=== PATIENT | male | born 1940 | race Caucasian/White ===

== ENCOUNTER → 2016-12-12 | Outpatient (CLI) | payer MEDICARE ==
--- NOTE | 2016-12-12 12:26 | CT ---
EXAMINATION TYPE: CT ChestAbdPelvis wo con DATE OF EXAM: 12/12/2016 9:27 AM COMPARISON: PET/CT August 27, 2016. CT abdomen pelvis September 19, 2016 HISTORY: Follow up renal cancer. No complaints at time of service CT DLP: 1306 mGycm. Automated Exposure Control for Dose Reduction was Utilized. TECHNIQUE: CT scan of the thorax, abdomen and pelvis is performed with oral but without IV contrast. FINDINGS: LUNGS: There is background of mild to moderate emphysematous change. There is redemonstration of scat tered pulmonary nodules or metastatic lesions. For reference posterior right upper lobe nodule measur es 9 mm on long axis current study image 13 versus 12 mm on recent PET/CT. Subpleural nodule lateral left upper lobe measures 8 mm on long axis prior study image 17 versus 10 mm on prior study. Largest nodule left mid lung laterally on image 111 PET/CT measuring roughly 1.8 cm on long axis is not clear ly identified on today's study. Some linear scarring is present at this level. Nodule just inferior m edial to this measures 1.3 cm on long axis current versus 1.7 cm on prior PET/CT image 118 study imag e 35. No new or enlarging nodules are evident. No pleural effusion or pneumothorax is seen. MEDIASTINUM: Previously visualized enlarged thoracic lymph nodes are improved, for reference anterior prevascular lymph node measures 1.7 x 1.2 cm on PET/CT image 100 and now measures 8 x 6 mm on curren t study image 24. No pericardial effusion is seen. There is redemonstration of cardiomegaly with everardo trial and left ventricular dilatation. Coronary artery calcification and/or stent is redemonstrated. There is 4 vessel origin from aortic arch which is normal variant. OTHER: No additional significant abnormality is seen. LIVER/GB: No significant abnormality is appreciated. PANCREAS: No significant abnormality is seen. SPLEEN: No significant abnormality is seen. ADRENALS: No significant abnormality is seen. KIDNEYS: A vague partially calcified 3.2 cm lesion medially upper pole level right kidney is redemons trated consistent with known neoplasm. More ill-defined mass or area just inferior and lateral to thi s is less well-seen on current study. Etiology uncertain. Multifocal neoplasm involvement suspected o n prior CT. There are now 2-3 calculi scattered throughout left kidney measuring 3 mm or smaller in size. BOWEL: Diverticula are seen in redundant sigmoid colon. No acute diverticulitis is identified. GENITAL ORGANS: Heterogeneous enlarged prostate gland with calcifications is redemonstrated. LYMPH NODES: No greater than 1cm abdominal or pelvic lymph nodes are appreciated. Scattered prominent but subcentimeter retroperitoneal lymph nodes remain present. OSSEOUS STRUCTURES: There is transitional-type vertebra at lumbosacral junction. There is multilevel spurring in the mid to lower thoracic spine. OTHER: No significant additional abnormality is seen. IMPRESSION: Overall improvement in pulmonary metastatic disease and thoracic adenopathy. No new or en larging masses or adenopathy is clearly evident.
== END ==
LOC: RADCTMAIN 09:04
PROVIDERS: ATTEND Internal Medicine Hematology & Oncology
DX: Z03.89 Encounter for observation for other suspected diseases and conditions ruled out (principal); C78.02 Secondary malignant neoplasm of left lung; C78.01 Secondary malignant neoplasm of right lung; R59.0 Localized enlarged lymph nodes; C64.1 Malignant neoplasm of right kidney, except renal pelvis
CPT/HCPCS: 71250; 74176

== ENCOUNTER → 2017-04-13 | Outpatient (CLI) | payer MEDICARE ==
[2017-04-13 12:30] LABS: Blood Urea Nitrogen 16 mg/dL (9-20); Non-African American GFR(MDRD) >60 (>60 ml/min/1.73 sqM)
--- NOTE | 2017-04-13 14:02 | CT ---
EXAMINATION TYPE: CT ChestAbdPelvis w con DATE OF EXAM: 04/13/2017 COMPARISON: Previous study dated 12/12/2016. HISTORY: Patient has no complaints at time of study. Follow up study for known renal CA. CT DLP: 2005 mGycm Automated exposure control for dose reduction was used. TECHNIQUE: Helical acquisition through the abdomen and pelvis was obtained without oral contrast but following the intravenous administration of 100 mL of Visipaque 320. The data was formatted in the a xial, coronal and sagittal projections. FINDINGS: There are emphysematous changes throughout the lungs. 12 mm lesion in the posterior segment of the right upper lobe now measures 11 mm. 10 11 mm nodule in the right middle lobe now measures 10 mm. Other pulmonary nodules are shown similar decreases in size from the previous study. No definite new nodules are seen. There are no enlarged axillary, mediastinal or hilar lymph nodes. Shotty lymphadenopathy persists. There is no pleural or pericardial fluid. The heart is mildly enlarged. There is moderate coronary ar hetal calcification as well as other vascular calcifications. Within the abdomen, the liver is normal in size. The spleen and gallbladder are normal. There is a sm all splenule lateral to the spleen. Both adrenal glands are normal. There is a heterogeneously enhancing 3.6 x 3.6 x 3.2 cm mass arising from the upper pole of the right kidney. The left kidney has a normal appearance. The pancreas is unremarkable. There is no significant retroperitoneal, iliac or inguinal adenopathy. The prostate is enlarged and partially calcified. There is bladder wall thickening likely due to clerk carrier stew bladder outlet obstruction. There is extensive diverticular change throughout the sigmoid colon with scattered diverticula elsewh ere throughout the left side of the colon but without evidence of diverticulitis. The appendix is not visualized. There are mildly thickened loops of small bowel. I could not exclude some degree of enteritis. No free fluid and no free air is seen. There is hypertrophic spondylosis in the upper dorsal spine spine. There is degenerative disc disease at L4-5. No bony destructive lesion is seen. IMPRESSION: 1. THE PATIENT'S KNOWN RIGHT-SIDED RENAL CELL CARCINOMA APPEARS LARGER ON TODAY'S EXAMINATION. THIS M AY BE DUE TO IMPROVED DEFINITION WITH CONTRAST. 2. IMPROVEMENT IN THE PATIENT'S BILATERAL PULMONARY NODULES AND MEDIASTINAL ADENOPATHY. 3. EMPHYSEMATOUS CHANGES THROUGHOUT THE LUNGS. 4. CARDIOMEGALY. 5. PROSTATIC ENLARGEMENT AND BLADDER WALL THICKENING, LIKELY SECONDARY TO CHRONIC BLADDER OUTLET OBST RUCTION. 6. DEGENERATIVE CHANGES WITHIN THE SPINE. 7. SEVERAL THICKENED LOOPS OF SMALL BOWEL MAY REPRESENT ENTERITIS. PLEASE CORRELATE CLINICALLY.
== END | disposition home or self-care (01) ==
LOC: RADCTMAIN 11:18
PROVIDERS: ATTEND Internal Medicine Hematology & Oncology
DX: C64.1 Malignant neoplasm of right kidney, except renal pelvis (principal); J43.9 Emphysema, unspecified; R91.8 Other nonspecific abnormal finding of lung field; I51.7 Cardiomegaly; R59.0 Localized enlarged lymph nodes; N40.0 Benign prostatic hyperplasia without lower urinary tract symptoms
CPT/HCPCS: 82565; 84520; 71260; 74177; 36415; Q9967

== ENCOUNTER → 2017-07-24 | Outpatient (CLI) | payer MEDICARE ==
[2017-07-24 09:55] LABS: Blood Urea Nitrogen 20 mg/dL (9-20); Non-African American GFR(MDRD) >60 (>60 ml/min/1.73 sqM)
--- NOTE | 2017-07-24 11:35 | CT ---
EXAMINATION TYPE: CT ChestAbdPelvis w con DATE OF EXAM: 07/24/2017 COMPARISON: 04/13/2017 and 12/12/2016 HISTORY: Renal cancer CT DLP: 1204.40 mGycm. Automated Exposure Control for Dose Reduction was Utilized. CONTRAST: CT scan of the thorax, abdomen and pelvis is performed with IV Contrast, patient injected with 100 ml mL of Omnipaque 300. FINDINGS: LUNGS: There is stability of the right apical solid pulmonary nodule measuring approximately 1.1 cm s een on series 10 image 12. Spiculated anterior right upper lobe nodule measures approximately 1.0 cm, unchanged from the prior. Superior segment left upper lobe pulmonary nodule measures 7 mm, similar t o the prior on series 10 image 21. 1.0 cm left lower lobe nodule on series 10 image 31 is seen. Other scattered subcentimeter pulmonary nodules appear unchanged from the prior exam. No new nodules are a ppreciated. Mild centrilobular emphysematous changes are redemonstrated. There is no pleural effusion or pneumothorax seen. The tracheobronchial tree is patent. MEDIASTINUM: Mildly enlarged subcarinal lymph node measures 1.2 cm in short axis in precarinal lymph node measures 0.9 cm in short axis, nonenlarged. Findings are unchanged from the prior exam. No peric ardial effusion is seen. Incidental note is made of normal variant origin of the left vertebral michael ry directly from the aortic arch. Mild calcific atheromatous changes are present of the aortic arch a nd moderate of the coronary arteries. Heart is not enlarged. LIVER/GB: No intrahepatic biliary ductal dilatation. Liver and gallbladder are of normal morphology. Liver is diffusely hypoattenuated and of decreased enhancement in comparison to that of the splenic p arenchyma most commonly related to hepatic steatosis. PANCREAS: No significant abnormality is seen. No ductal dilatation. SPLEEN: No significant abnormality is seen. Small splenule is again seen. ADRENALS: Adrenal glands maintain their normal adreniform shape without discrete nodule or enlargemen t.. KIDNEYS: The heterogenous mass with mural nodules and internal complexity representing the known righ t renal cell carcinoma within the right upper pole measures approximately 3.7 x 3.7 x 3.2 cm, minimal ly enlarged from the prior examination of 04/13/2017 as it measured 3.6 x 3.6 x 3.2 cm. On series 16 im age 61 this is located approximately 6 mm from the right superior pole medial calyx although does jake ear to have mass effect upon additional superior calyx on series 13 image 63. No nodules are seen wit hin Gerarda's fascia. There is no thickening enteritis fascia. Mild nonspecific perinephric fat stran ding is seen. Capsular retraction and cortical scar present of the posterior lateral right kidney mid pole. Although the renal vein is diminutive there does not appear to be thrombus within the renal vei n. Overall the inferior vena cava is flattened and diminutive indicating hypovolemia. BOWEL: Multiple sigmoid diverticula are present without pericolonic fat stranding. Bowel is of normal caliber, nonenlarged. GENITAL ORGANS: Prostate gland is heterogenous and enlarged measuring 5.4 cm in transverse dimension. LYMPH NODES: No greater than 1cm abdominal or pelvic lymph nodes are appreciated. OSSEOUS STRUCTURES: No suspicious abnormality is present. Degenerative changes of the rectal lumbar l umbosacral spine are again seen. OTHER: No significant additional abnormality is seen. IMPRESSION: 1. Minimal increase in size of the known primary right renal cell carcinoma with overall stable likel y metastatic pulmonary nodules and thoracic adenopathy in comparison the prior exam of 04/13/2017. 2. No evidence of visceral metastasis within the abdomen or pelvis. No new suspicious osseous lesions .
== END | disposition home or self-care (01) ==
LOC: RADCTMAIN 09:22
PROVIDERS: ATTEND Internal Medicine Hematology & Oncology
DX: C64.1 Malignant neoplasm of right kidney, except renal pelvis (principal)
CPT/HCPCS: 82565; 84520; 71260; 74177; 36415; Q9967

== ENCOUNTER → 2017-09-06 | Outpatient (CLI) | payer MEDICARE ==
[2017-09-06 07:42] LABS: ALT 40 U/L (21-72); AST 29 U/L (17-59); Cholesterol 199 mg/dL (<200); HDL Cholesterol 68 mg/dL (40-60)
== END | disposition home or self-care (01) ==
LOC: LABWHC1 06:38
PROVIDERS: ATTEND Internal Medicine Cardiovascular Disease
DX: E78.2 Mixed hyperlipidemia (principal); E11.610 Type 2 diabetes mellitus with diabetic neuropathic arthropathy; I10 Essential (primary) hypertension
CPT/HCPCS: 36415; 80061; 83036; 84450; 84460

== ENCOUNTER → 2017-10-16 | Outpatient (CLI) | payer MEDICARE ==
[2017-10-16 13:03] LABS: Blood Urea Nitrogen 20 mg/dL (9-20)
--- NOTE | 2017-10-16 14:26 | CT ---
EXAMINATION TYPE: CT ChestAbdPelvis w con DATE OF EXAM: 10/16/2017 COMPARISON: 07/24/2017 HISTORY: Renal cancer CT DLP: 1747 mGycm Automated exposure control for dose reduction was used. CONTRAST: 100 cc Omnipaque 300 FINDINGS: LUNGS: There is a stable 1.1 cm right apical pulmonary nodule 2 mm left upper lobe pleural-based nodule stable Along the medial aspect of the left upper lobe posteriorly there is an additional 2 to 3 mm nodule sl ightly increased in size from previous exam 9 mm irregular density anterior segment right upper lobe stable 2 mm lateral posterior left upper lobe nodule stable Subpleural 7 mm nodule superior segment left lower lobe stable 2 mm nodule superior segment right lower lobe stable 2 mm nodule left upper lobe laterally image 30 stable 9 mm nodule lower lobe stable Additional tiny satellite nodules measuring 2 mm retrospectively stable 2 mm nodule anterior segment right upper lobe stable Right upper lobe 4 mm the 5 mm nodule slightly increased in size To millimeter nodule left lower lobe are stable. MEDIASTINUM: Stable 1.2 cm subcarinal lymph node. Stable 0.9 cm in short axis precarinal lymph node. Incidental note made of normal variant origin of the left vertebral artery directly from the aortic a rch. Atherosclerotic change of aorta and coronary arteries noted. OTHER: No additional significant abnormality is seen. LIVER/GB: No significant abnormality is appreciated. PANCREAS: No significant abnormality is seen. SPLEEN: No significant abnormality is seen. ADRENALS: No significant abnormality is seen. KIDNEYS: Right renal mass measuring 2.9 x 2.5 cm with calcification is stable given differences in me asurement technique. No additional renal lesions. Cortical loss on the right appears chronic.. BOWEL: Diverticulosis of the colon REPRODUCTIVE ORGANS: Prostate enlarged LYMPH NODES: No greater than 1 cm abdominal or pelvic lymph nodes are appreciated. OSSEOUS STRUCTURES: Hypertrophic and degenerative change of the spine. OTHER: Prostate gland is enlarged IMPRESSION: 1. Given differences in technique right renal mass appears stable. 2. There are numerous bilateral pulmonary nodules one or 2 of which may have demonstrated a 1 mm incr ease in size from the prior exam as measured above. 3. Stable subcarinal lymphadenopathy.
== END | disposition home or self-care (01) ==
LOC: RADCTMAIN 12:15
PROVIDERS: ATTEND Internal Medicine Hematology & Oncology
DX: Z03.89 Encounter for observation for other suspected diseases and conditions ruled out (principal); C64.1 Malignant neoplasm of right kidney, except renal pelvis; R91.8 Other nonspecific abnormal finding of lung field; R59.0 Localized enlarged lymph nodes
CPT/HCPCS: 82565; 84520; 71260; 74177; 36415; Q9967 ×2

== ENCOUNTER → 2018-01-24 | Outpatient (CLI) | payer MEDICARE ==
[2018-01-24 07:51] LABS: Blood Urea Nitrogen 16 mg/dL (9-20)
--- NOTE | 2018-01-24 10:40 | CT ---
EXAMINATION TYPE: CT ChestAbdPelvis w con DATE OF EXAM: 01/24/2018 COMPARISON: 10/16/2017 and 07/24/2017 HISTORY: 77-year-old male Follow up to renal CA TECHNIQUE: Contiguous axial scanning of the chest, abdomen, and pelvis performed with IV Contrast, pa tient injected with 100 mL of Isovue 300. Delayed images through the kidneys were obtained. Coronal/s agittal reconstructions performed. CT DLP: 1254 mGycm Automated exposure control for dose reduction was used. FINDINGS: Chest: Heart upper limits of normal in size without pericardial effusion. Coronary vessel calcifications are present and are remarkable for coronary artery disease. Aortic valvular calcifications are present. Mild ectasia ascending aorta at 3.6 cm. Mild atherosclerotic arch calcifications. Variant direct take off of the left vertebral artery directly from the aortic arch. 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 Precarinal lymph node is stable to minimally larger at 1.1 cm versus 1 cm 10/16/2017 and 9 mm on 2016. Subcarinal lymph node measures 1.7 cm versus 1.6 cm on 10/16/2017 and 1.2 cm on 07/24/2017. A nonenlarg ed 9 mm left hilar lymph node is unchanged. Evaluation of the lungs shows COPD with mild centrilobular emphysema. Redemonstrated numerous bilater al pulmonary nodules measuring up to 1 cm. The majority of these are largely stable, couple maybe a m illimeter increased in size. No consolidation or pleural effusion. Stable stranding curvilinear atelectasis or scarring at the lef t mid lung. ABDOMEN: No focal liver lesion seen. No biliary ductal dilatation. Portal venous system is patent. Gallbladder, adrenal glands, left kidney, spleen with peripheral splenule, and pancreas show no gross abnormal body. Nonobstructive 4 mm calculus lower pole left kidney and 4 mm in the upper pole left kidney. Partially cystic mass medial upper pole left kidney redemonstrated. This is relatively unchanged martha uring approximately 3.5 cm. Moderate stool throughout the colon. Mild sigmoid diverticulosis. No dilated small bowel, free fluid, or free air. Moderate atherosclerotic calcifications throughout the abdominal aorta without aneurysm. Pelvis: Bladder is urine distended. Prostate gland is enlarged at 5.6 cm wide. Multiple pelvic phleboliths. N o abnormal fluid collection in the pelvis or pelvic lymphadenopathy seen. Bones: Mild degenerative changes of the hips. Degenerative changes at the SI joints and within the mid to lo wer lumbar spine. Endplate spondylosis mid to lower thoracic spine. IMPRESSION: 1. THE PATIENT'S PARTIALLY CYSTIC RIGHT UPPER POLE RCC IS RELATIVELY UNCHANGED AT APPROXIMATELY 3.5 C M. 2. A FEW MILDLY ENLARGED MEDIASTINAL LYMPH NODES MEASURING UP TO 1.7 CM ARE MINIMALLY LARGER BY ONLY A MILLIMETER COMPARED TO 10/16/2017. 3. BILATERAL PULMONARY NODULES MEASURING UP TO 1 CM ARE RELATIVELY UNCHANGED, A FEW MAY BE A MILLIMET ER LARGER. 4. COPD WITH MILD EMPHYSEMA AND LEFT-SIDED NEPHROLITHIASIS. MILD SIGMOID DIVERTICULOSIS AND PROSTATOM EGALY (5.6 CM WIDE).
== END | disposition home or self-care (01) ==
LOC: RADCTMAIN 07:13
PROVIDERS: ATTEND Internal Medicine Hematology & Oncology
DX: C64.1 Malignant neoplasm of right kidney, except renal pelvis (principal); N20.0 Calculus of kidney; N28.1 Cyst of kidney, acquired; J43.9 Emphysema, unspecified; K57.30 Diverticulosis of large intestine without perforation or abscess without bleeding; N40.0 Benign prostatic hyperplasia without lower urinary tract symptoms; R91.8 Other nonspecific abnormal finding of lung field
CPT/HCPCS: 82565; 84520; 71260; 74177; 36415; Q9967

== ENCOUNTER → 2018-04-13 | Outpatient (CLI) | payer MEDICARE ==
[2018-04-13 10:01] LABS: Blood Urea Nitrogen 20 mg/dL (9-20)
--- NOTE | 2018-04-13 12:13 | CT ---
EXAMINATION TYPE: CT ChestAbdPelvis w con DATE OF EXAM: 04/13/2018 COMPARISON: 01/24/2018 and 10/16/2017 HISTORY: 77-year-old male Renal cell Cancer TECHNIQUE: Contiguous axial scanning of the chest, abdomen, and pelvis performed with IV Contrast, pa tient injected with 100 ml mL of Isovue 300. Delayed images through the kidneys were obtained. Balderas l/sagittal reconstructions performed. CT DLP: 1165.80 mGycm Automated exposure control for dose reduction was used. FINDINGS: Chest: Heart is upper limits of normal in size without pericardial effusion. Mitral annular and aortic valvu lar calcifications are present as well as coronary artery calcifications. Ascending aorta ectatic at 3.5 cm with mild atherosclerotic arch calcifications. Variant direct takeo ff of the left vertebral artery directly from the aortic arch. Apparent intraluminal defect involving a right middle lobe branch localizes to the bronchus on balderas l and sagittal series, referred axial image 32) pulmonary arterial system. There is progressive mediastinal lymphadenopathy measuring 1.5 cm precarinal, 1.4 cm left tracheobron chial angle, 1.1 cm AP window, 1.4 cm right hilar, 2.7 cm subcarinal, and 9 mm superior left mediasti num, previously measuring up to 1.1 cm. Mild centrilobular emphysema. There is no more confluent nodularity at the left midlung and left lowe r lobe, for example, reference axial image 30. Multiple pulmonary nodules show slight interval increase in size, for example, in the inferior lingul a measuring 9 mm versus 6 no evidence, previously, posterior right apex measuring 1.2 cm versus 8 mm, previously, anterior right midlung 1.0 cm versus 7 mm, previously just as an example. Some postsurgical changes at the periphery of the left mid and lower lung with increasing nodularity about the site. New small left pleural effusion. ABDOMEN: Small hiatal hernia. No focal liver lesion or biliary ductal dilatation. Portal venous system is patent. Gallbladder, adrenal glands, spleen with lateral splenule, and pancreas show no gross abnormality. Cortical defects within the upper pole of the right kidney unchanged. Medial right upper pole solid h eterogeneously enhancing neoplasm measures 3.8 cm versus 3.5 cm on 01/24/2018. No dilated small bowel, free fluid, or free air. No mesenteric or retroperitoneal lymphadenopathy see n. 5 mm nonobstructive left upper pole renal calculus. Oral contrast progressed to the rectum. Mild sigmoid diverticulosis. No pericolonic inflammatory curtis ge or significant stool burden. Pelvis: Bladder distended. Prostate gland prominent measuring 5.8 cm wide. Multiple pelvic phleboliths. No ab normal fluid collection in the pelvis. Bones: New 1.3 cm lytic lesion within the left T5 vertebral body. Mild degenerative changes at the hips. Deg enerative changes at the SI joints, and facet arthropathy with degenerative disc disease in the lumba r spine with grade 1 anterolisthesis at L4-L5. IMPRESSION: 1. DISEASE PROGRESSION WITH ENLARGING MEDIASTINAL LYMPHADENOPATHY MEASURING UP TO 2.7 CM VERSUS 1.7 C M, PREVIOUSLY. 2. 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 3. ENLARGING NUMEROUS BILATERAL PULMONARY NODULES MEASURING UP TO 1.2 CM. THERE IS POSTSURGICAL RAMIREZ E ALONG THE LEFT MID TO LOWER LUNG WITH INCREASING CONFLUENT NODULARITY HERE WELL. NEW SMALL LEFT PLEURAL EFFUSION. 4. THE PATIENT'S RIGHT UPPER POLE RCC IS MINIMALLY LARGER AT 3.8 CM VERSUS 3.5 CM, PREVIOUSLY. 5. COPD WITH MILD EMPHYSEMA, 5 MM NONOBSTRUCTIVE LEFT RENAL CALCULUS, AND MILD SIGMOID DIVERTICULOSIS .
== END | disposition home or self-care (01) ==
LOC: RADCTMAIN 09:31
PROVIDERS: ATTEND Internal Medicine Hematology & Oncology
DX: C64.1 Malignant neoplasm of right kidney, except renal pelvis (principal); C79.51 Secondary malignant neoplasm of bone; J90 Pleural effusion, not elsewhere classified; J43.9 Emphysema, unspecified; N20.0 Calculus of kidney; K57.30 Diverticulosis of large intestine without perforation or abscess without bleeding; R59.0 Localized enlarged lymph nodes; R91.8 Other nonspecific abnormal finding of lung field; Z98.890 Other specified postprocedural states
CPT/HCPCS: 82565; 84520; 71260; 74177; 36415; Q9967

== ENCOUNTER → 2018-07-03 | Outpatient (CLI) | payer MEDICARE ==
[2018-07-03 10:48] LABS: Blood Urea Nitrogen 16 mg/dL (9-20)
--- NOTE | 2018-07-03 14:44 | CT ---
EXAMINATION TYPE: CT ChestAbdPelvis w con DATE OF EXAM: 07/03/2018 COMPARISON: CT chest abdomen and pelvis April 13, 2018 and older studies. PET/CT August 27, 2016. HISTORY: Follow up metastatic renal cell cancer to lung currently on chemotherapy. CT DLP: 1050.50 mGycm. Automated Exposure Control for Dose Reduction was Utilized. CONTRAST: CT scan of the thorax, abdomen and pelvis is performed with oral and with IV Contrast, patient inject ed with 100 mL of Isovue 300. FINDINGS: LUNGS: There is stable small left pleural effusion. Mild underlying emphysematous changes redemonstra desmond. MEDIASTINUM: There are persist and abnormal enlarged thoracic lymph nodes, subcarinal lymph node martha ures roughly 3.6 x 2.5 cm axial image 26 but is less hyperdense or enhancing versus prior CT making d ifficulty from the posterior esophagus. There are bilateral enlarged hilar lymph nodes re demonstrated. There are abnormal prevascular and AP window lymph nodes as well as para carinal and ly mph nodes again seen. The paracarinal lymph node measures roughly 1.8 x 1.5 cm slightly larger versus prior study with diminished density or enhancement noted. There is stable mild cardiomegaly. No significant pericardial effusion is seen. Fairly severe coronar y Coronary artery calcification is redemonstrated which is noted marker for coronary artery disease. Mitral and aortic valvular calcifications are redemonstrated. Poor enhancement of the left atrial jake endage near axial image 29 favors mixing of noncontrast and contrast filled blood, thrombus can be ex cluded with echo evaluation if desired. Spiculated nodule anterior right mid lung measures 9 x 8 mm current study axial image 20 not signific antly changed from prior. There is stable 5 mm subpleural nodule lateral and posterior to this axial image 22. In the right lower lobe there is stable 6 x 5 mm nodule axial image 31. The right middle lo be anteriorly there is stable or slightly larger nodules measuring 8 x 8 mm axial image 37 and 9 x 8 mm axial image 39. Persistent irregular linear and nodular consolidation in the left mid to lower lung remains present. There is stable or slightly larger subpleural lingular nodule measuring 11 x 5 mm current study axial image 30. There is stable or slightly more prominent 7 x 6 mm superior left lower lobe nodule axial image 20 just anterior to pleural effusion. There is stable 9 x 7 mm lateral left upper lobe nodule a xial image 12. No new nodules are clearly seen. No pneumothorax is noted bilaterally. There is enlarging or new pleural-based deposit axial image 32 measuring 2.5 x 1.6 cm abutting the se venth rib OTHER: Small degree of bilateral gynecomastia is redemonstrated. LIVER/GB: No significant abnormality is appreciated. PANCREAS: No significant abnormality is seen. SPLEEN: Small splenule along posterior lateral aspect of spleen axial image 23 is redemonstrated. ADRENALS: No significant abnormality is seen. KIDNEYS: Primary heterogeneous enhancing partially calcified neoplasm medially upper pole level right kidney is redemonstrated measuring roughly 3.6 x 3.4 cm on axial image 28. There is symmetric cortic al medullary uptake and excretion from both kidneys without hydronephrosis bilaterally. There is stab le 4 mm calculus lower pole level left kidney series 4 image 75. BOWEL: The oral contrast reaches level of the right colon. Evaluation of distal bowel suboptimal. The re is no suspicious small or large bowel dilatation. There are diverticula in the left and sigmoid co radha. There is some mild fat stranding in the left paracolic gutter. Cannot exclude mild acute colitis at this level. GENITAL ORGANS: Prostate gland is enlarged in size bulging on bladder base. LYMPH NODES: No greater than 1cm abdominal or pelvic lymph nodes are appreciated. OSSEOUS STRUCTURES: There is multilevel moderate to severe spurring throughout the thoracolumbar spin e. Transitional type LV vertebra is present. Moderate joint space loss in both hips is present. There is multilevel facet arthropathy in the lumbar spine. There is enlarging lytic lesion involving the l eft T 5 vertebra coronal image 73 now extending to it anterior aspect of spinal canal axial image 20 with posterior cortical breakthrough. OTHER: No significant additional abnormality is seen. IMPRESSION: Overall mixed response. Of most concern is enlarging lytic T5 vertebral lesion now invad ing anterolateral left spinal canal. Advise radiation oncology referral. Lymph nodes are mixed stable , some slightly increased in size, however diminished enhancement is noted which is generally positiv e treatment response. Scattered pulmonary nodules stable or slightly larger in size. New or enlarging mid left posterior pleural-based lesion noted. Stable primary neoplasm upper pole right kidney.
== END | disposition home or self-care (01) ==
LOC: RADCTMAIN 10:16
PROVIDERS: ATTEND Internal Medicine Hematology & Oncology
DX: C64.1 Malignant neoplasm of right kidney, except renal pelvis (principal)
CPT/HCPCS: 82565; 84520; 71260; 74177; 36415; Q9967

== ENCOUNTER → 2018-07-24 | Outpatient (CLI) | payer MEDICARE ==
[2018-07-24 13:46] LABS: HCT 45.5 % (39.0-53.0); HGB 14.5 gm/dL (13.0-17.5); Hypochromasia Slight; MCH 32.4 pg (25.0-35.0); MCV 101.3 fL (80.0-100.0); Macrocytosis Slight; Mean Platelet Volume 9.6; Platelet Count 178 k/uL (150-450); RBC 4.49 m/uL (4.30-5.90); RDW 15.1 % (11.5-15.5); WBC 4.6 k/uL (3.8-10.6)
[2018-07-24 14:03] LABS: Anion Gap 10 mmol/L; Blood Urea Nitrogen 16 mg/dL (9-20); Carbon Dioxide 28 mmol/L (22-30); Chloride 99 mmol/L (98-107); Potassium 4.4 mmol/L (3.5-5.1); Sodium 137 mmol/L (137-145)
--- NOTE | 2018-07-24 14:51 | XR ---
EXAMINATION TYPE: XR chest 2V DATE OF EXAM: 07/24/2018 COMPARISON: 09/26/2016 HISTORY: Cough TECHNIQUE: Frontal and lateral views of the chest are obtained. FINDINGS: There is a new small layering left pleural effusion with associated left basilar airspace disease. There are moderate multilevel degenerative changes of the thoracic spine. Heart is mildly en larged. Right lung remains clear. No sizable pneumothorax. IMPRESSION: New small left pleural effusion with associated left basilar airspace disease, most comm only related to atelectasis.
== END ==
LOC: LABWHC1 11:35
PROVIDERS: ATTEND Internal Medicine Cardiovascular Disease
DX: J90 Pleural effusion, not elsewhere classified (principal); J98.4 Other disorders of lung; I50.21 Acute systolic (congestive) heart failure
CPT/HCPCS: 36415; 71046; 80051; 82565; 83880; 84520; 85027

== ENCOUNTER 2018-08-24 03:16 | Inpatient (IN) | payer MEDICARE, OTHER ==
[2018-08-24] MEDS ORDERED: SODIUM CHLORIDE 0.9% 1,000 ML IV STA (03:35)
[2018-08-24] MEDS ORDERED: DILTIAZEM DRIP BOLUS FROM BAG 1 MG SOLN IV ONE ×2 (03:35→12:01)
[2018-08-24] MEDS: DILTIAZEM 50 MG in SODIUM CHLORIDE 0.9% 40 ML IV SCH ×3 (03:49→20:27)
--- NOTE | 2018-08-24 03:55 | ED ---
SOB HPI - General Chief Complaint: Shortness of Breath Stated Complaint: SOB Time Seen by Provider: 08/24/18 03:19 Source: patient, RN notes reviewed, old records reviewed Mode of arrival: ambulatory Limitations: no limitations - History of Present Illness Initial Comments: This is a 69-year-old male the ER for evaluation. This patient presents today for evaluation for shortness of breath positive cough or congestion. Patient has no recent travel history no sick contacts does have history of A. fib, feeling his heart is been high left is been low and recently was cut back on his medications secondary low heart rate. No other complaints no chest pain MD Complaint: shortness of breath, cough -: days(s) (2) Severity: mild Consistency: constant Improves With: nothing Worsens With: exertion, movement Known History Of: congestive heart failure Context: recent URI Treatments Prior to Arrival: none - Related Data Home Medications Medication Instructions Recorded Confirmed Ezetimibe/Simvastatin [Vytorin 1 tab PO Q72H 07/07/16 09/16/16 10-20 mg Tablet] Multivit-Min/FA/Lycopen/Lutein 1 tab PO DAILY 07/07/16 09/16/16 [Centrum Silver Tablet] Rivaroxaban [Xarelto] 20 mg PO W/SUPPER 07/07/16 09/16/16 glipiZIDE [Glucotrol] 10 mg PO W/SUPPER 07/07/16 09/16/16 metFORMIN HCL 1,000 mg PO BID 07/07/16 09/16/16 sitaGLIPtin [Januvia] 100 mg PO DAILY@1200 07/07/16 09/16/16 Furosemide [Lasix] 20 mg PO DAILY 07/13/16 09/16/16 Metoprolol Succinate [Toprol XL] 50 mg PO DAILY 07/13/16 09/16/16 Potassium Chloride ER [K-Dur 10] 10 meq PO DAILY 07/13/16 09/16/16 Dapagliflozin Propanediol [Farxiga] 10 mg PO DAILY 07/18/16 09/16/16 Enalapril [Vasotec] 10 mg PO DAILY 07/18/16 09/16/16 Isosorbide Mononitrate ER [Imdur] 30 mg PO DAILY 07/28/16 09/16/16 Previous Rx's Medication Instructions Recorded HYDROcodone/APAP 5-325MG [[place] 1 each PO Q6HR PRN #60 tab 09/17/16 5-325] Allergies Allergy/AdvReac Type Severity Reaction Status Date / Time No Known Allergies Allergy Verified 08/24/18 03:34 Review of Systems ROS Statement: Those systems with pertinent positive or pertinent negative responses have been documented in the HPI. ROS Other: All systems not noted in ROS Statement are negative. Past Medical History Past Medical History: Atrial Fibrillation, Coronary Artery Disease (CAD), Chest Pain / Angina, CVA/TIA, Diabetes Mellitus, Hyperlipidemia, Hypertension Additional Past Medical History / Comment(s): chseter, carotid doppler, heart cath, lung mass being investigated, renal mass biopsy scheduled History of Any Multi-Drug Resistant Organisms: None Reported Past Surgical History: Appendectomy, Heart Catheterization Additional Past Surgical History / Comment(s): jamilah cataracts Past Anesthesia/Blood Transfusion Reactions: No Reported Reaction Past Psychological History: No Psychological Hx Reported Smoking Status: Former smoker Past Alcohol Use History: Occasional Past Drug Use History: None Reported - Past Family History Father Family Medical History: Cancer General Exam Limitations: no limitations General appearance: alert, in no apparent distress Head exam: Present: atraumatic, normocephalic, normal inspection Eye exam: Present: normal appearance, PERRL, EOMI. Absent: scleral icterus, conjunctival injection, periorbital swelling ENT exam: Present: normal exam, mucous membranes dry Neck exam: Present: normal inspection. Absent: tenderness, meningismus, lymphadenopathy Respiratory exam: Present: normal lung sounds bilaterally. Absent: respiratory distress, wheezes, rales, rhonchi, stridor Cardiovascular Exam: Present: tachycardia, irregular rhythm, normal heart sounds. Absent: systolic murmur, diastolic murmur, rubs, gallop, clicks GI/Abdominal exam: Present: soft, normal bowel sounds. Absent: distended, tenderness, guarding, rebound, rigid Extremities exam: Present: normal inspection, full ROM, normal capillary refill. Absent: tenderness, pedal edema, joint swelling, calf tenderness Back exam: Present: normal inspection Neurological exam: Present: alert, oriented X3, CN II-XII intact Psychiatric exam: Present: normal affect, normal mood Skin exam: Present: warm, dry, intact, normal color. Absent: rash Course Vital Signs 08/24/18 03:17 Temperature 98 F Pulse Rate 113 H Respiratory 18 Rate Blood Pressure 113/71 O2 Sat by Pulse 91 L Oximetry - Reevaluation(s) Reevaluation #1: 08/24/18 04:29 Medical record is reviewed Reevaluation #2: 08/24/18 04:29 Patient is much improved heart rate currently Medical Decision Making - Medical Decision Making 77 male the ER for evaluation, patient presents today for weakness, patient is positive A. fib with RVR, patient be admitted for rate control cardiology evaluation - Lab Data Result diagrams: 08/24/18 03:30 08/24/18 03:30 Lab Results 08/24/18 08/24/18 08/24/18 Range/Units 03:30 03:30 03:30 WBC 8.7 (3.8-10.6) k/uL RBC 4.11 L (4.30-5.90) m/uL Hgb 13.0 (13.0-17.5) gm/dL Hct 40.3 (39.0-53.0) % MCV 98.2 (80.0-100.0) fL MCH 31.6 (25.0-35.0) pg MCHC 32.1 (31.0-37.0) g/dL RDW 14.7 (11.5-15.5) % Plt Count 164 (150-450) k/uL Neutrophils % 83 % Lymphocytes % 8 % Monocytes % 7 % Eosinophils % 1 % Basophils % 0 % Neutrophils # 7.2 (1.3-7.7) k/uL Lymphocytes # 0.7 L (1.0-4.8) k/uL Monocytes # 0.6 (0-1.0) k/uL Eosinophils # 0.1 (0-0.7) k/uL Basophils # 0.0 (0-0.2) k/uL PT (9.0-12.0) sec INR (<1.2) APTT (22.0-30.0) sec Sodium 132 L (137-145) mmol/L Potassium 3.6 (3.5-5.1) mmol/L Chloride 95 L (98-107) mmol/L Carbon Dioxide 25 (22-30) mmol/L Anion Gap 12 mmol/L BUN 21 H (9-20) mg/dL Creatinine 1.08 (0.66-1.25) mg/dL Est GFR (CKD-EPI)AfAm 76 (>60 ml/min/1.73 sqM) Est GFR (CKD-EPI)NonAf 65 (>60 ml/min/1.73 sqM) Glucose 272 H (74-99) mg/dL Calcium 9.3 (8.4-10.2) mg/dL Magnesium 1.2 L (1.6-2.3) mg/dL Total Bilirubin 0.8 (0.2-1.3) mg/dL AST 29 (17-59) U/L ALT 39 (21-72) U/L Alkaline Phosphatase 76 (38-126) U/L Total Creatine Kinase 41 L (55-170) U/L Total Protein 5.8 L (6.3-8.2) g/dL Albumin 3.1 L (3.5-5.0) g/dL 08/24/18 Range/Units 03:30 WBC (3.8-10.6) k/uL RBC (4.30-5.90) m/uL Hgb (13.0-17.5) gm/dL Hct (39.0-53.0) % MCV (80.0-100.0) fL MCH (25.0-35.0) pg MCHC (31.0-37.0) g/dL RDW (11.5-15.5) % Plt Count (150-450) k/uL Neutrophils % % Lymphocytes % % Monocytes % % Eosinophils % % Basophils % % Neutrophils # (1.3-7.7) k/uL Lymphocytes # (1.0-4.8) k/uL Monocytes # (0-1.0) k/uL Eosinophils # (0-0.7) k/uL Basophils # (0-0.2) k/uL PT 11.7 (9.0-12.0) sec INR 1.2 H (<1.2) APTT 27.3 (22.0-30.0) sec Sodium (137-145) mmol/L Potassium (3.5-5.1) mmol/L Chloride (98-107) mmol/L Carbon Dioxide (22-30) mmol/L Anion Gap mmol/L BUN (9-20) mg/dL Creatinine (0.66-1.25) mg/dL Est GFR (CKD-EPI)AfAm (>60 ml/min/1.73 sqM) Est GFR (CKD-EPI)NonAf (>60 ml/min/1.73 sqM) Glucose (74-99) mg/dL Calcium (8.4-10.2) mg/dL Magnesium (1.6-2.3) mg/dL Total Bilirubin (0.2-1.3) mg/dL AST (17-59) U/L ALT (21-72) U/L Alkaline Phosphatase (38-126) U/L Total Creatine Kinase (55-170) U/L Total Protein (6.3-8.2) g/dL Albumin (3.5-5.0) g/dL - Radiology Data Radiology results: report reviewed (Chest x-rays negative for acute disease, he does have old. Pleural effusion), image reviewed Critical Care Time Critical Care Time: Yes Total Critical Care Time: 31 Disposition Clinical Impression: Acute pulmonary edema, Congestive heart failure, Atrial fibrillation with RVR Disposition: ADMITTED IP TO THIS HOSP Condition: Fair Is patient prescribed a controlled substance at d/c from ED?: No Referrals: Elton Molina MD [Primary Care Provider] - 1-2 days
[2018-08-24 04:01] LABS: Basophils % (A) 0 %; Eosinophils # (A) 0.1 k/uL (0-0.7); Eosinophils % (A) 1 %; HCT 40.3 % (39.0-53.0); Lymphocytes # (A) 0.7 k/uL (1.0-4.8); Lymphocytes % (A) 8 %; MCH 31.6 pg (25.0-35.0); MCHC 32.1 g/dL (31.0-37.0); MCV 98.2 fL (80.0-100.0); Mean Platelet Volume 8.5; Monocytes # (A) 0.6 k/uL (0-1.0); Monocytes % (A) 7 %; Neutrophils # (A) 7.2 k/uL (1.3-7.7); Neutrophils % (A) 83 %; Platelet Count 164 k/uL (150-450); RBC 4.11 m/uL (4.30-5.90); RDW 14.7 % (11.5-15.5); WBC 8.7 k/uL (3.8-10.6)
--- NOTE | 2018-08-24 04:03 | XR ---
EXAMINATION TYPE: XR chest 2V DATE OF EXAM: 08/24/2018 COMPARISON: 07/24/2018 HISTORY: Short of breath. Lung cancer. TECHNIQUE: Frontal and lateral views of the chest are obtained. FINDINGS: There is consolidation in the left lower lobe. There is pulmonary vascular congestion. Hea rt appears enlarged. There is mild blunting of right costophrenic angle. IMPRESSION: Left lower lobe consolidation and pleural fluid increased slightly compared to last exam . There is increasing pulmonary congestion suggestive of mild heart failure.
[2018-08-24 04:17] LABS: Albumin 3.1 g/dL (3.5-5.0); Calcium 9.3 mg/dL (8.4-10.2); Magnesium 1.2 mg/dL (1.6-2.3); Potassium 3.6 mmol/L (3.5-5.1); Total Bilirubin 0.8 mg/dL (0.2-1.3); Total Protein 5.8 g/dL (6.3-8.2)
[2018-08-24 04:19] LABS: INR 1.2 (<1.2); Partial Thromboplastin Time 27.3 sec (22.0-30.0); Prothrombin Time 11.7 sec (9.0-12.0)
[2018-08-24] MEDS ORDERED: NITROGLYCERIN SL TABS 0.4 MG TAB SUBLINGUAL PRN (04:26)
[2018-08-24 04:32] LABS: Creatine Kinase MB 1.4 ng/mL (0.0-2.4); Troponin I 0.015 ng/mL (0.000-0.034)
[2018-08-24] MEDS: SODIUM CHLORIDE 0.9% 1,000 ML IV SCH ×2 (05:28→16:40)
[2018-08-24] MEDS ORDERED: APIXABAN 5 MG TAB PO SCH (10:11)
[2018-08-24] MEDS: ATORVASTATIN 80 MG TAB PO SCH (10:29)
[2018-08-24] MEDS: PIOGLITAZONE 30 MG TAB PO SCH (12:28)
[2018-08-24] MEDS: metFORMIN 500 MG TAB PO SCH ×2 (12:28→17:27)
[2018-08-24] MEDS: METOPROLOL TARTRATE 50 MG TAB PO SCH ×2 (12:29→20:24)
[2018-08-24] MEDS: LISINOPRIL 2.5 MG TAB PO SCH (12:29)
[2018-08-24] MEDS: FUROSEMIDE 20 MG TAB PO SCH ×2 (12:29→20:24)
[2018-08-24] MEDS: ISOSORBIDE MONONITRATE ER 30 MG TAB.ER.24H PO SCH (12:30)
--- NOTE | 2018-08-24 12:34 | CONS ---
CONSULTATION Mr. Leyva is a 77-year-old gentleman who is seen for evaluation for atrial fibrillation. Patient's emergency medical records, old records reviewed, history also obtained from the family members. This patient came to the emergency room because he was not feeling well. He has been having some symptoms of shortness of breath, nonproductive cough. He did not had any fever or chills. Patient has a known history of atrial fibrillation. In the emergency room, patient was found to be having atrial fibrillation with a moderately rapid ventricular response. This patient has a history of lung cancer and as well as a kidney cancer. Patient has been treated with chemotherapy. Patient recently received 10 radiation treatments for his back. Patient was just discharged from the [facility] about a week ago. At that time patient had a thoracentesis done and about 1 L of fluid was removed. At present, patient is lying comfortably. HOME MEDICATIONS: Include Vytorin, Xarelto 20 mg daily, Glucotrol 10 mg daily, Januvia, Lasix, Toprol, K- Dur, Farxiga, Vasotec and Imdur. PAST MEDICAL HISTORY: Includes history of coronary artery disease, history of prior history of TIA, diabetes, hyperlipidemia, hypertension, prior history of cardiac catheterization and history of being treated for lung and kidney cancer. PHYSICAL EXAMINATION: At present reveals a 77-year-old gentleman who is weak and ill-looking. Patient's temperature is normal. Pulse rate is 120-130 per minute. Respiratory rate is 18. HEENT examination is negative. Neck is supple. There is no increase in jugular venous pressure. Both the carotid pulses are felt, there is no bruit. Chest is symmetrical. Heart, first and second heart sounds are normal. Lungs reveal bilateral few crackle, rales. Abdomen is soft. Extremities reveal peripheral pulsations are 1+. EKG shows evidence of atrial fibrillation with a moderately rapid ventricular response. A chest x-ray shows infiltrate on the left side suggestive of possible developing pneumonia and pleural effusion. Patient's BNP level is 2,100. IMPRESSION: 1. This patient has presented with atrial fibrillation with a rapid ventricular response and weakness, rule out developing pneumonia in the left lower lobe. 2. Patient may have underlying mild congestive cardiac failure. We will give him additional dose of Cardizem bolus and increase the drip of Cardizem to control the rate. Continue the patient on beta lisandro. Echo and Doppler study will be obtained. Patient is currently getting Lasix 20 mg b.i.d. Pulmonary consultation will be requested. PUNEET / CHRISTINEN: [id number] /
[2018-08-24 12:45] LABS: Glucose,Whole Blood 235 mg/dL (75-99)
[2018-08-24] MEDS: INSULIN ASPART 100 UNIT/ML 1 ML 10 ML VIAL SQ SCH ×3 (12:46→21:05)
[2018-08-24 13:02] LABS: Creatine Kinase 37 U/L (55-170)
[2018-08-24 13:15] LABS: Creatine Kinase MB 1.3 ng/mL (0.0-2.4); Troponin I <0.012 ng/mL (0.000-0.034)
--- NOTE | 2018-08-24 14:03 | ECHOF ---
Referral Reason:lv function MEASUREMENTS -------- HEIGHT: 170.2 cm WEIGHT: 83.9 kg BP: 133/97 RVIDd: 3.0 cm (< 3.3) IVSd: 1.2 cm (0.6 - 1.1) LVIDd: 4.2 cm (3.9 - 5.3) LVPWd: 1.0 cm (0.6 - 1.1) IVSs: 2.1 cm LVIDs: 3.1 cm LVPWs: 1.5 cm LA Diam: 3.8 cm (2.7 - 3.8) LAESV Index (A-L): 37.57 ml/m Ao Diam: 3.6 cm (2.0 - 3.7) AV Cusp: 1.4 cm (1.5 - 2.6) MV EXCURSION: 23.948 mm (> 18.000) MV EF SLOPE: 155 mm/s (70 - 150) EPSS: 0.9 cm AV maxP.00 mmHg AV meanP.34 mmHg RAP: 15.00 mmHg RVSP: 41.05 mmHg FINDINGS -------- Atrial fibrillation. This was a technically adequate study. The left ventricular size is normal. There is borderline concentric left ventricular hypertrophy. Overall left ventricular systolic function is moderately impaired with, an EF between 35 - 40 %. The right ventricle is normal in size. LA is moderately dilated 34-39 ml/m2 The right atrium is normal in size. There is moderate to severe aortic valve sclerosis. There is bcuirohi-kd-kbcaow aortic stenosis pre sent. Peak/mean gradient across the Aortic Valve is 31.00mmHg / 18.34mmHg. The severity of the ao rtic stenosis might be underestimated due to low EF. The mitral valve leaflets are mildly thickened. Mild mitral annular calcification present. Mild m itral regurgitation is present. Mild tricuspid regurgitation present. There is mild pulmonary hypertension. The right ventricular systolic pressure, as measured by Doppler, is 41.05mmHg. The pulmonic valve was not well visualized. The aortic root size is normal. The inferior vena cava is dilated with poor inspiratory collapse which is consistent with estimated r ight atrial pressure of 15 mmHg. There is a trivial pericardial effusion present. Pleural Effusion with Fibrin. CONCLUSIONS -------- 1. Atrial fibrillation. 2. This was a technically adequate study. 3. The left ventricular size is normal. 4. There is borderline concentric left ventricular hypertrophy. 5. Overall left ventricular systolic function is moderately impaired with, an EF between 35 - 40 %. 6. The right ventricle is normal in size. 7. LA is moderately dilated 34-39 ml/m2 8. The right atrium is normal in size. 9. There is moderate to severe aortic valve sclerosis. 10. There is umetlmkz-hl-yygrnw aortic stenosis present. 11. Peak/mean gradient across the Aortic Valve is 31.00mmHg / 18.34mmHg. 12. The severity of the aortic stenosis might be underestimated due to low EF. 13. The mitral valve leaflets are mildly thickened. 14. Mild mitral annular calcification present. 15. Mild mitral regurgitation is present. 16. Mild tricuspid regurgitation present. 17. There is mild pulmonary hypertension. 18. The right ventricular systolic pressure, as measured by Doppler, is 41.05mmHg. 19. The pulmonic valve was not well visualized. 20. The aortic root size is normal. 21. The inferior vena cava is dilated with poor inspiratory collapse which is consistent with estimat ed right atrial pressure of 15 mmHg. 22. There is a trivial pericardial effusion present. 23. Pleural Effusion with Fibrin. INTERIOR DESIGN PROJECT MANAGER: Sandra Perry RDCS
[2018-08-24 15:51] LABS: Creatine Kinase 42 U/L (55-170)
[2018-08-24 16:03] LABS: Creatine Kinase MB 1.4 ng/mL (0.0-2.4); Troponin I <0.012 ng/mL (0.000-0.034)
[2018-08-24 16:40] LABS: Glucose,Whole Blood 222 mg/dL (75-99)
[2018-08-24] MEDS: IPRATROPIUM-ALBUTEROL 3 ML NEB INHALATION SCH ×2 (16:51→20:19)
--- NOTE | 2018-08-24 17:46 | CONS ---
CONSULTATION Stan Leyva is a 77-year-old male who presented to the ED at [facility] with increasing shortness of breath and weakness for about 3-4 days duration. He was seen in the ED and subsequently admitted for further evaluation. He has a history of cough with some congestion. No clear fever or chills. His heart rate had been low. He has a known history of atrial fibrillation. He has a history of kidney cancer with spread to the lung and left-sided pleural effusion for which he had recently undergone thoracentesis at [facility] where I was caring for him and he was due for an outpatient followup. PAST MEDICAL HISTORY: Positive for atrial fibrillation, coronary artery disease, diabetes mellitus, hyperlipidemia, hypertension, lung mass, renal mass with renal cell cancer. FAMILY HISTORY: Positive for cancer in his father. SOCIAL HISTORY: Patient is a former smoker. He used to work for [employer] in [place] and was exposed to solvents in the past. MEDICATIONS: Prior to admission were verapamil ER, multivitamin, DuoNeb, Feosol, vitamin D3, Zestril, Imdur, Lasix, Toprol-XL, Pioglitazone, Eliquis and metformin. REVIEW OF SYSTEMS: Noncontributory. PHYSICAL EXAMINATION: The patient was lying in bed. His oxygen saturation on room air was 90%. Blood pressure is 141/79, respiratory rate of 18, pulse rate of 107. He is afebrile. HEENT reveals pupils that are equal. Chest reveals decreased breath sounds in the left base. Cardiovascular system reveals an S1, S2. No S3, no S4. No murmurs. Abdomen is soft. There is 1+ pedal edema. LABS: Reveal a white count of 8.7, hemoglobin of 13.1, PT/INR 1.2. Sodium 132, potassium 3.6, chloride 95, bicarb 25, BUN 21, creatinine 1.08, glucose 272, albumin 3.1. Chest x-ray shows evidence of left-sided pleural effusion with some infiltrative changes. IMPRESSION: At this time. 1. Shortness of breath secondary to left-sided pleural effusion from kidney cancer likely. 2. Atrial fibrillation with RVR for which the patient had been on IV Cardizem. 3. Mild bronchospasm secondary to asthma with exacerbation. At this point in time from a pulmonary standpoint, would set the patient up for an ultrasound-guided thoracentesis. Keep him on bronchodilators and aerosolized steroids. Hold off on any antibiotics and defer to Cardiology regarding discontinuation of his Eliquis and possibly bridging him with IV heparin. Depending on how he does, we shall make further changes to his care. We will follow closely during his hospital stay. Appreciate the opportunity to participate in his care. PUNEET / CHRISTINEN: [id number] /
--- NOTE | 2018-08-24 20:16 | HP ---
HISTORY AND PHYSICAL CHIEF COMPLAINT: A 77-year-old white male white male admitted with atrial fibrillation with rapid ventricular response. Heart rate is 130s-160s in the emergency room. He is on Cardizem drip. History of kidney cancer and lung cancer with left-sided pleural effusion. Recent thoracentesis at the other hospital. PAST MEDICAL HISTORY: Atrial fibrillation, coronary artery disease, diabetes mellitus, hypertension, renal cancer, lung cancer. FAMILY HISTORY: Cancer with his father. SOCIAL HISTORY: Former smoker. Works at [employer] with some exposure. MEDICINES: Include metoprolol, Lasix, Imdur, Zestril, Actos, Eliquis, metformin. REVIEW OF SYSTEMS: Weakness, fatigue. Otherwise, 14-point review of systems is negative. PHYSICAL EXAMINATION: Blood pressure is 140s over 70s, heart rate is 130s to 160s. LUNGS: Decreased breath sounds. HEART: S1, S2, tachy, irregular rhythm. Abdomen soft. 2+ pedal edema. LABS: Reviewed. ASSESSMENT: 1. Shortness of breath due to left-sided pleural effusion. 2. Kidney cancer. 3. Lung cancer. 4. Atrial fibrillation. 5. Rapid ventricular response. 6. IV Cardizem. 7. Bronchospasm secondary to asthma. 8. Possible double thoracentesis will be needed. Bronchodilator steroids and continue with IV heparin. Hold Eliquis due to possible tap. Please see further orders. Await oncology recommendations. MMODL / IJN: [id number] /
[2018-08-24] MEDS: BUDESONIDE 0.5 MG/2 ML NEBU INHALATION SCH (20:19)
[2018-08-24 20:39] LABS: Glucose,Whole Blood 163 mg/dL (75-99)
[2018-08-25 02:30] LABS: Cholesterol 133 mg/dL (<200); HDL Cholesterol 52 mg/dL (40-60); LDL Cholesterol,Calculated 56 mg/dL (0-99); Triglycerides 123 mg/dL (<150)
[2018-08-25] MEDS: IPRATROPIUM-ALBUTEROL 3 ML NEB INHALATION SCH ×2 (03:01→07:48)
[2018-08-25] MEDS: DILTIAZEM 50 MG in SODIUM CHLORIDE 0.9% 40 ML IV SCH ×4 (03:30→21:05)
[2018-08-25] MEDS: SODIUM CHLORIDE 0.9% 1,000 ML IV SCH (04:45)
[2018-08-25 05:43] LABS: Glucose,Whole Blood 179 mg/dL (75-99)
[2018-08-25] MEDS: INSULIN ASPART 100 UNIT/ML 1 ML 10 ML VIAL SQ SCH ×4 (06:47→21:05)
[2018-08-25] MEDS: metFORMIN 500 MG TAB PO SCH ×2 (06:47→17:12)
[2018-08-25] MEDS: BUDESONIDE 0.5 MG/2 ML NEBU INHALATION SCH ×2 (07:48→20:56)
[2018-08-25] MEDS ORDERED: ASPIRIN 325 MG TAB PO SCH (09:00)
[2018-08-25] MEDS: FERROUS SULFATE 325 MG TAB PO SCH (09:09)
[2018-08-25] MEDS: FUROSEMIDE 20 MG TAB PO SCH ×2 (09:09→21:05)
[2018-08-25] MEDS: LISINOPRIL 2.5 MG TAB PO SCH (09:09)
[2018-08-25] MEDS: ISOSORBIDE MONONITRATE ER 30 MG TAB.ER.24H PO SCH (09:09)
[2018-08-25] MEDS: ATORVASTATIN 80 MG TAB PO SCH (09:09)
[2018-08-25] MEDS: MULTIVITAMINS, THERA 1 EACH TAB PO SCH (09:10)
[2018-08-25] MEDS: METOPROLOL TARTRATE 50 MG TAB PO SCH ×3 (09:17→21:05)
[2018-08-25] MEDS: CHOLECALCIFEROL 1,000 UNIT TAB PO SCH (09:18)
[2018-08-25] MEDS: PIOGLITAZONE 30 MG TAB PO SCH (09:25)
[2018-08-25] MEDS ORDERED: HEPARIN SODIUM,PORCINE 5,000 UNIT/ML 1 ML VIAL IV ONE (10:29)
[2018-08-25] MEDS ORDERED: HEPARIN SODIUM,PORCINE 5,000 UNIT/ML 1 ML VIAL IV PRN (10:29)
[2018-08-25 11:27] LABS: Glucose,Whole Blood 214 mg/dL (75-99)
[2018-08-25 11:57] LABS: Basophils % (A) 0 %; Eosinophils % (A) 0 %; HCT 36.5 % (39.0-53.0); HGB 11.4 gm/dL (13.0-17.5); Lymphocytes # (A) 0.4 k/uL (1.0-4.8); Lymphocytes % (A) 4 %; MCH 30.9 pg (25.0-35.0); MCHC 31.2 g/dL (31.0-37.0); Macrocytosis Slight; Mean Platelet Volume 7.2; Monocytes # (A) 0.5 k/uL (0-1.0); Monocytes % (A) 6 %; Neutrophils # (A) 7.8 k/uL (1.3-7.7); Neutrophils % (A) 89 %; Platelet Count 171 k/uL (150-450); RBC 3.69 m/uL (4.30-5.90); RDW 14.9 % (11.5-15.5); WBC 8.7 k/uL (3.8-10.6)
[2018-08-25 12:06] LABS: INR 1.3 (<1.2); Partial Thromboplastin Time 27.4 sec (22.0-30.0); Prothrombin Time 11.9 sec (9.0-12.0)
[2018-08-25 12:27] VITALS: BMI 30.5
[2018-08-25] MEDS: HEPARIN SOD,PORK IN 0.45% NACL 25,000 UNIT in 0.45% NACL 1 500ML.BAG IV SCH (12:28)
[2018-08-25] MEDS: ALBUTEROL NEBULIZED 2.5 MG/3 ML INHALATION PRN ×2 (13:09→20:56)
--- NOTE | 2018-08-25 13:13 | PN ---
PROGRESS NOTE DATE OF SERVICE: 08/25/2018 This patient continues to have shortness of breath and is in the telemetry unit at this time. He is on a Cardizem drip. His anticoagulation has been discontinued. PHYSICAL EXAMINATION: His blood pressure is 134/74, respiratory rate of 19, pulse rate of 112, oxygen saturation at 2 L by nasal cannula 94%. HEENT is unremarkable. Chest reveals decreased breath sounds on the left base. Cardiovascular system is in S1, S2. Abdomen is soft. There is trace pedal edema. IMPRESSION AT THIS TIME: 1. Left-sided pleural effusion secondary to renal cancer with metastatic disease to the lung likely. 2. Atrial fibrillation with rapid ventricular response. At this point in time, would bridge him with heparin until he gets his thoracentesis, which apparently is scheduled for Monday per Interventional Radiology. Would continue to stabilize his heart rate with Cardizem, but Cardiology is following and we will defer to their expertise. He was counseled regarding his condition and this approach. MMODL / IJN: [id number] /
--- NOTE | 2018-08-25 13:59 | P.PN ---
Subjective This is a pleasant 77-year-old male past medical history significant for coronary artery disease, TIA, diabetes mellitus, dyslipidemia, hypertension , lung and kidney cancer, aortic stenosis, dilated cardiomyopathy, chronic persistent atrial fibrillation on long-term anticoagulation and chronic systolic heart failure. He follows with Dr. Muñiz in the office. Cardiac catheterization performed in July 2016 reveals left main free of stenosis, LAD with moderate stenosis in the midportion, diagonal branch and a 60-70% stenosis, 70% stenosis and circumflex artery and 70-80% stenosis in the mid RCA. He came to the hospital with shortness of breath with left sided pleural secondary to renal cancer with metastatic disease as well as atrial fibrillation with rapid ventricular response. He was initiated on IV cardizem. Pulmonary is planning for thoracentesis Monday, anti-coagulation is held with heparin infusion to bridge. Blood pressure 134/74 heart rate 112 afebrile maintaining oxygen saturation on room air. Laboratory data reviewed, WBC 8.7, hemoglobin 11.4, platelets 171, INR 1.3. Echocardiogram obtained reveals moderately impaired left ventricular systolic function with ejection fraction 35 -40%, moderately dilated left atrium, moderate aortic stenosis mean gradient of 18 mmHg, mild MR, mild TR and mild pulmonary hypertension with RVSP of 41 mmHg. GENERAL: Well-appearing, well-nourished and in no acute distress. NECK: Supple without JVD or thyromegaly. LUNGS: Bibasila rales. Respiration equal and unlabored. No wheezes or rhonchi. HEART: Irregular rate and rhythm with systolic ejection murmur at the base, no rubs or gallops. S1 and S2 heard. EXTREMITIES: Normal range of motion, trace bilateral lower extremity non- pitting edema. No clubbing or cyanosis. Peripheral pulses intact. ASSESSMENT Chronic persistent atrial fibrillation with rapid ventricular response Chronic systolic heart failure, EF 30-35% Left sided pleural effusion secondary to renal cancer with metastasis to the lung likely Multivessel coronary artery disease Dyslipidemia Hypertension Aortic stenosis Dilated cardiomyopathy PLAN Increase beta lisandro to 50 mg TID for better heart rate control. Heparin infusion for bridging since eliquis has been discontinued. Pulmonary plans for thoracentisis Monday. We will continue to follow closely and make recommendations accordingly. Nurse Practitioner note has been reviewed, I agree with a documented findings and plan of care. Patient was seen and examined. Objective - Vital Signs Vital signs: Vital Signs Temp 98.1 F 08/24/18 20:00 Pulse 112 H 08/25/18 13:26 Resp 19 08/25/18 09:00 BP 134/74 08/25/18 09:00 Pulse Ox 94 L 08/25/18 09:00 Intake & Output 08/24/18 08/25/18 08/25/18 18:59 06:59 18:59 Intake Total 1103.667 50 290 Balance 1103.667 50 290 Weight 88.5 kg 88.5 kg Intake: IV 40 Diltiazem 50 mg In Sodium 40 Chloride 0.9% 40 ml @ 10 MG/HR 10 mls/hr IV .Q5H DEREK Rx#:[id number] Intake, IV Titration 883.667 50 50 Amount Diltiazem 50 mg In Sodium 83.667 50 50 Chloride 0.9% 40 ml @ 10 MG/HR 10 mls/hr IV .Q5H DEREK Rx#:[id number] Sodium Chloride 0.9% 1, 800 000 ml @ 100 mls/hr IV . Q10H DEREK Rx#:[id number] Oral 180 240 Other: Voiding Method Toilet Toilet Toilet # Voids 2 - Labs CBC & Chem 7: 08/25/18 11:32 08/24/18 03:30 Labs: Abnormal Lab Results - Last 24 Hours (Table) 08/24/18 08/24/18 08/24/18 Range/Units 12:00 14:59 16:32 RBC (4.30-5.90) m/uL Hgb (13.0-17.5) gm/dL Hct (39.0-53.0) % Neutrophils # (1.3-7.7) k/uL Lymphocytes # (1.0-4.8) k/uL INR (<1.2) POC Glucose (mg/dL) 222 H (75-99) mg/dL Hemoglobin A1c 10.0 H (4.0-6.0) % Total Creatine Kinase 42 L (55-170) U/L 08/24/18 08/25/18 08/25/18 Range/Units 20:38 05:42 11:18 RBC (4.30-5.90) m/uL Hgb (13.0-17.5) gm/dL Hct (39.0-53.0) % Neutrophils # (1.3-7.7) k/uL Lymphocytes # (1.0-4.8) k/uL INR (<1.2) POC Glucose (mg/dL) 163 H 179 H 214 H (75-99) mg/dL Hemoglobin A1c (4.0-6.0) % Total Creatine Kinase (55-170) U/L 08/25/18 08/25/18 Range/Units 11:32 11:32 RBC 3.69 L (4.30-5.90) m/uL Hgb 11.4 L (13.0-17.5) gm/dL Hct 36.5 L (39.0-53.0) % Neutrophils # 7.8 H (1.3-7.7) k/uL Lymphocytes # 0.4 L (1.0-4.8) k/uL INR 1.3 H (<1.2) POC Glucose (mg/dL) (75-99) mg/dL Hemoglobin A1c (4.0-6.0) % Total Creatine Kinase (55-170) U/L Microbiology - Last 24 Hours (Table) 08/24/18 20:31 Gram Stain - Preliminary Sputum Sputum Culture - Preliminary
[2018-08-25 16:21] LABS: Glucose,Whole Blood 215 mg/dL (75-99)
[2018-08-25] MEDS: SPIRONOLACTONE 25 MG TAB PO SCH (16:31)
--- NOTE | 2018-08-25 16:43 | PN ---
PROGRESS NOTE SUBJECTIVE: This patient is a 77-year-old white male with pleural effusion, metastatic lung cancer, renal cancer. He states he is short of breath with any exertion. He is on Cardizem drip for atrial fibrillation with rapid ventricular response. Anticoagulant has been discontinued for thoracentesis on Monday. Blood pressure 130s over 70s, respiratory rate 16 to 20, pulse 110s. He is saturating on 2 L 94%. CARDIOVASCULAR: S1, S2. Irregularly irregular rhythm. ABDOMEN: Soft. Trace pedal edema. ASSESSMENT: 1. Left-sided pleural effusions secondary to renal cancer with metastatic disease to the lung versus primary lung cancer, recurrent. 2. Atrial fibrillation with rapid ventricular response. 3. Diabetes mellitus. 4. Hypertension. 5. History of renal cancer. Continue with IV Cardizem drip. Pleural effusion for thoracentesis on Monday. MMODL / IJN: [id number] /
[2018-08-25 20:42] LABS: Glucose,Whole Blood 212 mg/dL (75-99)
[2018-08-25] MEDS: HYDROcodone/APAP 5-325MG 1 EACH TAB PO PRN (21:41)
[2018-08-25] MEDS: ZOLPIDEM 5 MG TAB PO SCH (21:59)
[2018-08-26] MEDS: DILTIAZEM 50 MG in SODIUM CHLORIDE 0.9% 40 ML IV SCH ×3 (02:05→12:40)
[2018-08-26 04:05] LABS: Basophils % (A) 0 %; Eosinophils # (A) 0.1 k/uL (0-0.7); Eosinophils % (A) 1 %; HCT 35.8 % (39.0-53.0); HGB 11.4 gm/dL (13.0-17.5); Lymphocytes # (A) 0.5 k/uL (1.0-4.8); Lymphocytes % (A) 5 %; MCH 31.4 pg (25.0-35.0); MCHC 31.8 g/dL (31.0-37.0); MCV 98.8 fL (80.0-100.0); Mean Platelet Volume 7.4; Monocytes # (A) 0.5 k/uL (0-1.0); Monocytes % (A) 5 %; Neutrophils # (A) 9.2 k/uL (1.3-7.7); Neutrophils % (A) 89 %; Platelet Count 153 k/uL (150-450); RBC 3.62 m/uL (4.30-5.90); RDW 14.7 % (11.5-15.5); WBC 10.4 k/uL (3.8-10.6)
[2018-08-26 04:35] LABS: Albumin 2.6 g/dL (3.5-5.0); Calcium 8.6 mg/dL (8.4-10.2); Potassium 3.6 mmol/L (3.5-5.1); Total Bilirubin 0.6 mg/dL (0.2-1.3); Total Protein 5.1 g/dL (6.3-8.2)
[2018-08-26 06:35] LABS: Glucose,Whole Blood 200 mg/dL (75-99)
[2018-08-26] MEDS: INSULIN ASPART 100 UNIT/ML 1 ML 10 ML VIAL SQ SCH ×4 (06:35→22:32)
[2018-08-26] MEDS: metFORMIN 500 MG TAB PO SCH ×2 (06:35→16:59)
[2018-08-26] MEDS: CHOLECALCIFEROL 1,000 UNIT TAB PO SCH (08:14)
[2018-08-26] MEDS: METOPROLOL TARTRATE 50 MG TAB PO SCH ×3 (08:14→22:32)
[2018-08-26] MEDS: LISINOPRIL 2.5 MG TAB PO SCH (08:15)
[2018-08-26] MEDS: SPIRONOLACTONE 25 MG TAB PO SCH (08:15)
[2018-08-26] MEDS: FUROSEMIDE 20 MG TAB PO SCH ×2 (08:15→22:32)
[2018-08-26] MEDS: ISOSORBIDE MONONITRATE ER 30 MG TAB.ER.24H PO SCH (08:15)
[2018-08-26] MEDS: ATORVASTATIN 80 MG TAB PO SCH (08:15)
[2018-08-26] MEDS: FERROUS SULFATE 325 MG TAB PO SCH (08:15)
[2018-08-26] MEDS: PIOGLITAZONE 30 MG TAB PO SCH (08:16)
[2018-08-26] MEDS: ALBUTEROL NEBULIZED 2.5 MG/3 ML INHALATION PRN ×3 (08:34→19:54)
[2018-08-26] MEDS: BUDESONIDE 0.5 MG/2 ML NEBU INHALATION SCH ×2 (08:34→19:55)
[2018-08-26] MEDS: MULTIVITAMINS, THERA 1 EACH TAB PO SCH (11:14)
[2018-08-26] MEDS: HEPARIN SOD,PORK IN 0.45% NACL 25,000 UNIT in 0.45% NACL 1 500ML.BAG IV SCH (11:14)
[2018-08-26 11:33] LABS: Glucose,Whole Blood 230 mg/dL (75-99)
--- NOTE | 2018-08-26 13:59 | P.PN ---
Subjective Progress Note Date: 08/26/18 This is a pleasant 77-year-old male past medical history significant for coronary artery disease, TIA, diabetes mellitus, dyslipidemia, hypertension , lung and kidney cancer, aortic stenosis, dilated cardiomyopathy, chronic persistent atrial fibrillation on long-term anticoagulation and chronic systolic heart failure. He follows with Dr. Muñiz in the office. Cardiac catheterization performed in July 2016 reveals left main free of stenosis, LAD with moderate stenosis in the midportion, diagonal branch and a 60-70% stenosis, 70% stenosis and circumflex artery and 70-80% stenosis in the mid RCA. He came to the hospital with shortness of breath with left sided pleural secondary to renal cancer with metastatic disease as well as atrial fibrillation with rapid ventricular response. He was initiated on IV cardizem. Pulmonary is planning for thoracentesis Monday, anti-coagulation is held with heparin infusion to bridge. Blood pressure 134/74 heart rate 112 afebrile maintaining oxygen saturation on room air. Laboratory data reviewed, WBC 8.7, hemoglobin 11.4, platelets 171, INR 1.3. Echocardiogram obtained reveals moderately impaired left ventricular systolic function with ejection fraction 35 -40%, moderately dilated left atrium, moderate aortic stenosis mean gradient of 18 mmHg, mild MR, mild TR and mild pulmonary hypertension with RVSP of 41 mmHg. 08/26: Patient states that he is feeling better today. His heart rate is running between 80 and 90 and Cardizem drip will be discontinued. He is on Lopressor 50 mg 3 times daily which will be consistent continued. He has less pedal edema bilaterally. He does have occasional left-sided chest pain. GENERAL: Well-appearing, well-nourished and in no acute distress. NECK: Supple without JVD or thyromegaly. LUNGS: Bibasila rales. Respiration equal and unlabored. No wheezes or rhonchi. HEART: Irregular rate and rhythm with systolic ejection murmur at the base, no rubs or gallops. S1 and S2 heard. EXTREMITIES: Normal range of motion, no bilateral lower extremity non-pitting edema. No clubbing or cyanosis. Peripheral pulses intact. ASSESSMENT Chronic persistent atrial fibrillation with rapid ventricular response Chronic systolic heart failure, EF 30-35% Left sided pleural effusion secondary to renal cancer with metastasis to the lung likely Multivessel coronary artery disease Dyslipidemia Hypertension Aortic stenosis Dilated cardiomyopathy PLAN Continue Lopressor 50 mg TID. Discontinue Cardizem drip. Heparin infusion for bridging since eliquis has been discontinued. Pulmonary plans for thoracentisis Monday. We will continue to follow closely and make recommendations accordingly. Nurse Practitioner note has been reviewed, I agree with a documented findings and plan of care. Patient was seen and examined. Objective - Vital Signs Vital signs: Vital Signs Temp 97 F L 08/26/18 08:00 Pulse 90 08/26/18 11:13 Resp 18 08/26/18 11:13 BP 101/64 08/26/18 11:13 Pulse Ox 94 L 08/26/18 11:13 Intake & Output 08/25/18 08/26/18 08/26/18 18:59 06:59 18:59 Intake Total 1530 481.193 213.636 Balance 1530 481.193 213.636 Weight 88.5 kg 89.4 kg Intake: IV 50 Diltiazem 50 mg In Sodium 50 Chloride 0.9% 40 ml @ 10 MG/HR 10 mls/hr IV .Q5H DEREK Rx#:[id number] Intake, IV Titration 200 481.193 153.636 Amount Diltiazem 50 mg In Sodium 100 140.333 Chloride 0.9% 40 ml @ 10 MG/HR 10 mls/hr IV .Q5H DEREK Rx#:[id number] Heparin Sod,Pork in 0.45% 0 340.860 153.636 NaCl 25,000 unit In 0.45 % NaCl 1 500ml.bag @ 11.3 UNITS/KG/HR 20 mls/hr IV .Q24H DEREK Rx#:[id number] Sodium Chloride 0.9% 1, 100 000 ml @ 100 mls/hr IV . Q10H DEREK Rx#:[id number] Oral 1280 60 Other: Voiding Method Toilet Toilet # Voids 2 2 - Labs CBC & Chem 7: 08/26/18 03:44 08/26/18 03:44 Labs: Abnormal Lab Results - Last 24 Hours (Table) 08/25/18 08/25/18 08/25/18 Range/Units 11:32 11:32 16:19 RBC 3.69 L (4.30-5.90) m/uL Hgb 11.4 L (13.0-17.5) gm/dL Hct 36.5 L (39.0-53.0) % Neutrophils # 7.8 H (1.3-7.7) k/uL Lymphocytes # 0.4 L (1.0-4.8) k/uL INR 1.3 H (<1.2) APTT (22.0-30.0) sec Sodium (137-145) mmol/L BUN (9-20) mg/dL Glucose (74-99) mg/dL POC Glucose (mg/dL) 215 H (75-99) mg/dL Total Protein (6.3-8.2) g/dL Albumin (3.5-5.0) g/dL 08/25/18 08/25/18 08/26/18 Range/Units 20:34 20:40 03:44 RBC 3.62 L (4.30-5.90) m/uL Hgb 11.4 L (13.0-17.5) gm/dL Hct 35.8 L (39.0-53.0) % Neutrophils # 9.2 H (1.3-7.7) k/uL Lymphocytes # 0.5 L (1.0-4.8) k/uL INR (<1.2) APTT 35.8 H (22.0-30.0) sec Sodium (137-145) mmol/L BUN (9-20) mg/dL Glucose (74-99) mg/dL POC Glucose (mg/dL) 212 H (75-99) mg/dL Total Protein (6.3-8.2) g/dL Albumin (3.5-5.0) g/dL 08/26/18 08/26/18 08/26/18 Range/Units 03:44 03:44 06:07 RBC (4.30-5.90) m/uL Hgb (13.0-17.5) gm/dL Hct (39.0-53.0) % Neutrophils # (1.3-7.7) k/uL Lymphocytes # (1.0-4.8) k/uL INR (<1.2) APTT 87.0 H (22.0-30.0) sec Sodium 135 L (137-145) mmol/L BUN 23 H (9-20) mg/dL Glucose 215 H (74-99) mg/dL POC Glucose (mg/dL) 200 H (75-99) mg/dL Total Protein 5.1 L (6.3-8.2) g/dL Albumin 2.6 L (3.5-5.0) g/dL 08/26/18 08/26/18 Range/Units 09:25 11:32 RBC (4.30-5.90) m/uL Hgb (13.0-17.5) gm/dL Hct (39.0-53.0) % Neutrophils # (1.3-7.7) k/uL Lymphocytes # (1.0-4.8) k/uL INR (<1.2) APTT 51.6 H (22.0-30.0) sec Sodium (137-145) mmol/L BUN (9-20) mg/dL Glucose (74-99) mg/dL POC Glucose (mg/dL) 230 H (75-99) mg/dL Total Protein (6.3-8.2) g/dL Albumin (3.5-5.0) g/dL
[2018-08-26 16:48] LABS: Glucose,Whole Blood 232 mg/dL (75-99)
[2018-08-26 20:28] LABS: Glucose,Whole Blood 193 mg/dL (75-99)
[2018-08-26] MEDS: HYDROcodone/APAP 5-325MG 1 EACH TAB PO PRN (22:31)
[2018-08-26] MEDS: ZOLPIDEM 5 MG TAB PO SCH (22:33)
--- NOTE | 2018-08-26 23:32 | PN ---
PROGRESS NOTE DATE OF SERVICE: 08/26/2018. HISTORY: He has been hemodynamically stable. He continues to have shortness of breath. PHYSICAL EXAMINATION: Blood pressure is 128/78, respiratory rate of 18, pulse rate of 111, temperature 98.2, O2 saturation on 2 L by nasal cannula is 94%. HEENT reveals pupils that are equal. Chest reveals decreased breath sounds at the left base. Cardiovascular system is S1, S2. Abdomen is soft. There is 1+ pedal edema. IMPRESSION: 1. Atrial fibrillation with rapid ventricular response. 2. Shortness of breath that is multifactorial in part due to left-sided pleural effusion secondary to metastatic renal cancer. 3. Medical debility. 4. Congestive heart failure. PLAN: At this point in time, would continue him on heparin and rate controlling medications. Plan for ultrasound-guided thoracentesis tomorrow. He was counseled regarding his condition and this approach and has a fair understanding of this plan. MMODL / IJN: [id number] /
[2018-08-27 05:55] LABS: Glucose,Whole Blood 181 mg/dL (75-99)
[2018-08-27 06:43] LABS: Basophils % (A) 0 %; Eosinophils % (A) 0 %; HGB 12.6 gm/dL (13.0-17.5); Lymphocytes # (A) 0.7 k/uL (1.0-4.8); Lymphocytes % (A) 7 %; MCHC 32.3 g/dL (31.0-37.0); MCV 98.9 fL (80.0-100.0); Monocytes # (A) 0.7 k/uL (0-1.0); Monocytes % (A) 7 %; Neutrophils # (A) 9.5 k/uL (1.3-7.7); Neutrophils % (A) 85 %; Platelet Count 164 k/uL (150-450); RBC 3.94 m/uL (4.30-5.90); RDW 14.6 % (11.5-15.5); WBC 11.2 k/uL (3.8-10.6)
[2018-08-27] MEDS: BUDESONIDE 0.5 MG/2 ML NEBU INHALATION SCH ×2 (07:08→20:31)
[2018-08-27] MEDS: ALBUTEROL NEBULIZED 2.5 MG/3 ML INHALATION PRN (07:08)
[2018-08-27] MEDS: metFORMIN 500 MG TAB PO SCH ×2 (07:20→16:48)
[2018-08-27] MEDS: INSULIN ASPART 100 UNIT/ML 1 ML 10 ML VIAL SQ SCH ×4 (07:20→21:26)
[2018-08-27] MEDS: CHOLECALCIFEROL 1,000 UNIT TAB PO SCH (08:39)
[2018-08-27] MEDS: ISOSORBIDE MONONITRATE ER 30 MG TAB.ER.24H PO SCH (08:39)
[2018-08-27] MEDS: FERROUS SULFATE 325 MG TAB PO SCH (08:39)
[2018-08-27] MEDS: ATORVASTATIN 80 MG TAB PO SCH (08:39)
[2018-08-27] MEDS: MULTIVITAMINS, THERA 1 EACH TAB PO SCH (08:40)
[2018-08-27] MEDS: SPIRONOLACTONE 25 MG TAB PO SCH (08:40)
[2018-08-27] MEDS: METOPROLOL TARTRATE 50 MG TAB PO SCH ×3 (08:40→20:00)
[2018-08-27] MEDS: FUROSEMIDE 20 MG TAB PO SCH ×2 (08:40→20:00)
[2018-08-27 11:20] LABS: Glucose,Whole Blood 210 mg/dL (75-99)
--- NOTE | 2018-08-27 13:45 | XR ---
EXAMINATION TYPE: XR chest 1V DATE OF EXAM: 08/27/2018 COMPARISON: Prior chest x-ray 08/24/2018 HISTORY: Status post thoracentesis TECHNIQUE: Single frontal view of the chest is obtained. FINDINGS: There is an interval improved aeration at the left lung base. No evident pneumothorax. Pat joana bibasilar densities present left greater than right. Heart size is likely stable. IMPRESSION: No evident complication status post left thoracentesis.
--- NOTE | 2018-08-27 14:54 | PN ---
PROGRESS NOTE DATE OF SERVICE: 08/27/2018 The patient is a 77-year-old male with kidney cancer with METS. Patient just returned from Interventional Radiology. He is status post a thoracentesis on the left side. Patient ambulated from the wheelchair to the chair in the room with steady gait. Patient is awake and alert. Still complains of some shortness of breath. Does have a dry cough. Patient is hemodynamically stable, afebrile in no acute distress. PHYSICAL EXAM: Vital signs, temp is 98.2, heart rate is 87, respiratory rate 16, blood pressure is 112/60, O2 SATs 97% on 2 L O2 via nasal cannula. HEENT: Head is normocephalic, atraumatic. Neck is supple. Trachea is midline. LUNGS: With decreased breath sounds. No clear rales or wheezes. HEART: S1, S2 are heard. Irregular, not tachycardic. ABDOMEN: Soft. Bowel sounds are heard. EXTREMITIES: With 1 to 2+ edema bilaterally, NEUROLOGIC: Patient is awake, alert. LABS: White count 11.2, hemoglobin is 12.6, hematocrit is 39.0 with 164,000 platelets. Chest x-ray shows improved aeration of the left lung base. No evident complication status post left thoracentesis. IMPRESSION: 1. Atrial fibrillation with rapid ventricular response. 2. Shortness of breath is multifactorial in part due to left-sided pleural effusion secondary to metastatic renal cancer. Patient is status post thoracentesis on the left side. 3. Medical debility. 4. Congestive heart failure. PLAN: Continue current medications which have been reviewed. Continue pulmonary hygiene with incentive spirometry. Continue to increase activity as tolerated. Continue diuresis and we will follow patient closely with you making further changes as necessary. MMODL / IJN: [id number] /
--- NOTE | 2018-08-27 16:12 | PN ---
PROGRESS NOTE This patient was admitted with atrial fibrillation with a rapid rate. The patient's electronic medical record was reviewed. Patient's heart rate now remains in the range of 80 to 90 per minute. Blood pressure is 112/60 mmHg. First and second heart sounds are heard. Examination of lungs reveals diminished air entry on the left side. Patient is supposed to have thoracentesis done today, and that is why patient's Eliquis is on hold. MMODL / IJN: [id number] /
[2018-08-27 16:13] LABS: Appearance,BF Hazy; Color,BF Orange
[2018-08-27 16:14] LABS: Nucleated Cells, Body Fluid 175 /uL; RBC, Body Fluid 15800 /uL
[2018-08-27 16:19] LABS: Glucose,Whole Blood 226 mg/dL (75-99)
--- NOTE | 2018-08-27 16:19 | US ---
EXAMINATION TYPE: US thoracentesis DATE OF EXAM: 08/27/2018 COMPARISON: NONE HISTORY: Pleural effusion. FINDINGS: Maximal barrier technique was utilized. The skin overlying a suitable pocket of fluid was localized and the overlying skin prepped and draped. Lidocaine was used for local anesthesia. Ultras ound was used with sterile technique. A 5 Welsh catheter over guide needle was advanced into the pl eural fluid collection using ultrasound guidance and the catheter advanced, needle removed. Approxim ately 1.5 liter(s) of serous sanguinous fluid was removed. Catheter was withdrawn and hemostasis ach ieved. There is no immediate complication. The patient discharged in stable condition without compl ication. IMPRESSION: STATUS POST ULTRASOUND GUIDED THORACENTESIS, POST PROCEDURE CHEST X-RAY PENDING. THIS HI OCEDURE WAS PERFORMED BY THE UNDERSIGNED. Specimen sent for laboratory analysis.
[2018-08-27 16:24] LABS: Mononuclear WBC,Body Fluid 94 %; Polynuclear WBC,Body Fluid 6 %; Total Cells Counted,Body Fluid 100
[2018-08-27] MEDS: LISINOPRIL 2.5 MG TAB PO SCH (16:47)
[2018-08-27] MEDS: PIOGLITAZONE 30 MG TAB PO SCH (16:48)
[2018-08-27 18:29] LABS: Total Protein, Body Fluid 2000 mg/dL
[2018-08-27] MEDS: APIXABAN 5 MG TAB PO SCH (20:00)
[2018-08-27] MEDS: ZOLPIDEM 5 MG TAB PO SCH (20:01)
[2018-08-27 21:20] LABS: Glucose,Whole Blood 184 mg/dL (75-99)
[2018-08-27] MEDS: HYDROcodone/APAP 5-325MG 1 EACH TAB PO PRN (21:28)
[2018-08-27] MEDS: HEPARIN SOD,PORK IN 0.45% NACL 25,000 UNIT in 0.45% NACL 1 500ML.BAG IV SCH (21:32)
--- NOTE | 2018-08-27 21:48 | PN ---
PROGRESS NOTE SUBJECTIVE: This patient is a 77-year-old white male admitted with atrial fibrillation, rapid ventricular rate. He is to get thoracentesis today. Eliquis is on hold. Continues on current treatment. His breathing is fair. We got an oncology consult, also. He is sitting up in bed, comfortable. PSYCH: Fair mood and affect. Respiratory rate 16-18. Blood pressure 111 to 130s over 60s to 70s, 94% on 2 L. Lungs show decreased breath sounds. Heart rate irregularly irregular rhythm, tachycardic. : No suprapubic tenderness. ASSESSMENT: 1. Atrial fibrillation with rapid ventricular response. 2. Pleural effusion. 3. Chronic obstructive pulmonary disease. 4. Metastatic lung cancer. 5. Renal cancer. Please see further orders. Prognosis guarded. Thoracentesis today. MMODL / IJN: [id number] /
[2018-08-28 06:42] LABS: Glucose,Whole Blood 173 mg/dL (75-99)
[2018-08-28 06:51] LABS: Albumin 2.5 g/dL (3.5-5.0); Calcium 8.3 mg/dL (8.4-10.2); Potassium 3.4 mmol/L (3.5-5.1); Total Bilirubin 0.8 mg/dL (0.2-1.3); Total Protein 4.9 g/dL (6.3-8.2)
[2018-08-28 06:53] LABS: Basophils % (A) 0 %; Eosinophils % (A) 0 %; HCT 36.7 % (39.0-53.0); HGB 11.6 gm/dL (13.0-17.5); Lymphocytes # (A) 0.5 k/uL (1.0-4.8); Lymphocytes % (A) 5 %; MCH 31.3 pg (25.0-35.0); MCHC 31.8 g/dL (31.0-37.0); MCV 98.5 fL (80.0-100.0); Mean Platelet Volume 7.5; Monocytes # (A) 0.5 k/uL (0-1.0); Monocytes % (A) 6 %; Neutrophils # (A) 8.5 k/uL (1.3-7.7); Neutrophils % (A) 88 %; Platelet Count 173 k/uL (150-450); RBC 3.72 m/uL (4.30-5.90); RDW 14.7 % (11.5-15.5); WBC 9.6 k/uL (3.8-10.6)
[2018-08-28] MEDS: INSULIN ASPART 100 UNIT/ML 1 ML 10 ML VIAL SQ SCH ×4 (06:57→23:56)
[2018-08-28] MEDS: metFORMIN 500 MG TAB PO SCH ×2 (06:57→16:44)
[2018-08-28] MEDS: FUROSEMIDE 20 MG TAB PO SCH ×2 (09:08→20:16)
[2018-08-28] MEDS: LISINOPRIL 2.5 MG TAB PO SCH (09:08)
[2018-08-28] MEDS: METOPROLOL TARTRATE 50 MG TAB PO SCH ×3 (09:08→20:16)
[2018-08-28] MEDS: APIXABAN 5 MG TAB PO SCH ×2 (09:08→20:16)
[2018-08-28] MEDS: FERROUS SULFATE 325 MG TAB PO SCH (09:08)
[2018-08-28] MEDS: ATORVASTATIN 80 MG TAB PO SCH (09:08)
[2018-08-28] MEDS: SPIRONOLACTONE 25 MG TAB PO SCH (09:09)
[2018-08-28] MEDS: MULTIVITAMINS, THERA 1 EACH TAB PO SCH (09:09)
[2018-08-28] MEDS: PIOGLITAZONE 30 MG TAB PO SCH (09:09)
[2018-08-28] MEDS: ISOSORBIDE MONONITRATE ER 30 MG TAB.ER.24H PO SCH (09:09)
[2018-08-28] MEDS: CHOLECALCIFEROL 1,000 UNIT TAB PO SCH (09:09)
[2018-08-28] MEDS: BUDESONIDE 0.5 MG/2 ML NEBU INHALATION SCH ×2 (09:21→20:02)
[2018-08-28] MEDS ORDERED: ONDANSETRON 4 MG/2 ML VIAL IVP PRN (09:23)
--- NOTE | 2018-08-28 09:27 | P.PN ---
Subjective Progress Note Date: 08/28/18 Interval history: 08/28/2018patient is being seen examined and evaluated today on rounds. He is resting up in bed on 2 L of supplemental oxygen via nasal cannula. Occasionally does have shortness of breath however is improving. The patient did undergo a left-sided thoracentesis with interventional radiology yesterday. Approximately 1.5 L of serosanguineous drainage was removed and sent to the lab. Today he has some generalized complains of mild nausea. We will order Zofran. He is afebrile no further complaints. Objective - Vital Signs Vital signs: Vital Signs Temp 97.5 F L 08/28/18 04:00 Pulse 94 08/28/18 04:00 Resp 16 08/28/18 04:00 BP 119/93 08/28/18 04:00 Pulse Ox 94 L 08/28/18 04:00 Intake & Output 08/27/18 08/28/18 08/28/18 18:59 06:59 18:59 Intake Total 720 300 0 Output Total 400 Balance 320 300 0 Weight 88.6 kg Intake: Oral 720 300 0 Output: Urine 400 Other: Voiding Method Toilet Toilet # Voids 1 - Exam GENERAL EXAM: Alert, active, comfortable in no apparent distress. HEAD: Normocephalic. EYES: Normal reaction of pupils, equal size. NOSE: Clear with pink turbinates. THROAT: No erythema or exudates. NECK: No masses, no JVD. CHEST: No chest wall deformity. LUNGS: Equal air entry with no crackles, wheeze, rhonchi or dullness. He has diminished bilaterally CVS: S1 and S2 normal with no audible mumurs, irregular rhythm. ABDOMEN: No hepatosplenomegaly, normal bowel sounds, no guarding or rigidity. EXTREMITIES: No edema noted, pedal pulses palpable. CENTRAL NERVOUS SYSTEM: No focal deficits, tone is normal in all 4 extremities. - Labs CBC & Chem 7: 08/28/18 06:05 08/28/18 06:05 Labs: Abnormal Lab Results - Last 24 Hours (Table) 08/27/18 08/27/18 08/27/18 Range/Units 11:15 16:17 21:19 RBC (4.30-5.90) m/uL Hgb (13.0-17.5) gm/dL Hct (39.0-53.0) % Neutrophils # (1.3-7.7) k/uL Lymphocytes # (1.0-4.8) k/uL Sodium (137-145) mmol/L Potassium (3.5-5.1) mmol/L Creatinine (0.66-1.25) mg/dL Glucose (74-99) mg/dL POC Glucose (mg/dL) 210 H 226 H 184 H (75-99) mg/dL Calcium (8.4-10.2) mg/dL Total Protein (6.3-8.2) g/dL Albumin (3.5-5.0) g/dL 08/28/18 08/28/18 08/28/18 Range/Units 06:05 06:05 06:41 RBC 3.72 L (4.30-5.90) m/uL Hgb 11.6 L (13.0-17.5) gm/dL Hct 36.7 L (39.0-53.0) % Neutrophils # 8.5 H (1.3-7.7) k/uL Lymphocytes # 0.5 L (1.0-4.8) k/uL Sodium 134 L (137-145) mmol/L Potassium 3.4 L (3.5-5.1) mmol/L Creatinine 1.55 H (0.66-1.25) mg/dL Glucose 185 H (74-99) mg/dL POC Glucose (mg/dL) 173 H (75-99) mg/dL Calcium 8.3 L (8.4-10.2) mg/dL Total Protein 4.9 L (6.3-8.2) g/dL Albumin 2.5 L (3.5-5.0) g/dL Microbiology - Last 24 Hours (Table) 08/27/18 13:20 Acid Fast Bacilli Smear - Final Thoracentesis Fluid Acid Fast Bacilli Culture - Preliminary 08/27/18 13:20 Gram Stain - Preliminary Pleural Fluid Body Fluid Culture - Preliminary 08/27/18 13:20 Fungal Culture - Preliminary Thoracentesis Fluid 08/24/18 20:31 Gram Stain - Final Sputum Sputum Culture - Final Assessment and Plan Assessment: Assessment A. fib with RVR Left-sided pleural effusion status post thoracentesis Multifactorial shortness of breath and dyspnea related to above Metastatic ureteral cancer Medical debility CHF Plan Medications have been reviewed and will be continued as ordered. Cardio on consult, Eliquis has been restarted Status post thoracentesis 1.5 L of fluid removed, fluid was sent to the lab results pending Continue with pulmonary hygiene, coughing and deep breathing exercises, and supportive care. Supplemental oxygen to maintain oxygen saturations of 92% or better. Continue nebulizer treatments. Increase activity as tolerated GI and DVT prophylaxis. We will continue to monitor labs/results and adjust treatment as necessary. Further recommendations pending. I, the signing physician performed an examination of the patient, discussed and directed their management with the nurse practitioner. I have reviewed the nurse practitioner's note and agree with the documented findings, orders and plan of care.
[2018-08-28] MEDS: ONDANSETRON 4 MG/2 ML VIAL IVP PRN ×2 (09:49→16:51)
[2018-08-28 11:35] LABS: Glucose,Whole Blood 172 mg/dL (75-99)
[2018-08-28] MEDS: methylPREDNISolone SOD SUCCI 125 MG/2 ML VIAL IV SCH ×3 (13:08→23:48)
--- NOTE | 2018-08-28 15:43 | P.PN ---
Subjective Progress Note Date: 08/28/18 This is a pleasant 77-year-old male past medical history significant for coronary artery disease, TIA, diabetes mellitus, dyslipidemia, hypertension , lung and kidney cancer, aortic stenosis, dilated cardiomyopathy, chronic persistent atrial fibrillation on long-term anticoagulation and chronic systolic heart failure. He follows with Dr. Muñiz in the office. Cardiac catheterization performed in July 2016 reveals left main free of stenosis, LAD with moderate stenosis in the midportion, diagonal branch and a 60-70% stenosis, 70% stenosis and circumflex artery and 70-80% stenosis in the mid RCA. He came to the hospital with shortness of breath with left sided pleural secondary to renal cancer with metastatic disease as well as atrial fibrillation with rapid ventricular response. He was initiated on IV cardizem. Pulmonary is planning for thoracentesis Monday, anti-coagulation is held with heparin infusion to bridge. Blood pressure 134/74 heart rate 112 afebrile maintaining oxygen saturation on room air. Laboratory data reviewed, WBC 8.7, hemoglobin 11.4, platelets 171, INR 1.3. Echocardiogram obtained reveals moderately impaired left ventricular systolic function with ejection fraction 35 -40%, moderately dilated left atrium, moderate aortic stenosis mean gradient of 18 mmHg, mild MR, mild TR and mild pulmonary hypertension with RVSP of 41 mmHg. 08/28/2018 Patient was seen and examined today, resting comfortably in bed, patient did undergo a left-sided thoracentesis with interventional radiology yesterday, proximally 1.5 L of serous sanguinous drainage was removed and sent to the lab. Breathing overall is stable today, mild nausea. Objective - Vital Signs Vital signs: Vital Signs Temp 98.1 F 08/28/18 08:00 Pulse 81 08/28/18 12:00 Resp 16 08/28/18 12:00 BP 93/58 08/28/18 12:00 Pulse Ox 95 08/28/18 12:00 Intake & Output 08/27/18 08/28/18 08/28/18 18:59 06:59 18:59 Intake Total 720 300 0 Output Total 400 Balance 320 300 0 Weight 88.6 kg Intake: Oral 720 300 0 Output: Urine 400 Other: Voiding Method Toilet Toilet Toilet # Voids 1 - Exam GENERAL: Well-appearing, well-nourished and in no acute distress. NECK: Supple without JVD or thyromegaly. LUNGS: Bibasila rales. Respiration equal and unlabored. No wheezes or rhonchi. HEART: Irregular rate and rhythm with systolic ejection murmur at the base, no rubs or gallops. S1 and S2 heard. EXTREMITIES: Normal range of motion, trace bilateral lower extremity non- pitting edema. No clubbing or cyanosis. Peripheral pulses intact. - Labs CBC & Chem 7: 08/28/18 06:05 08/28/18 06:05 Labs: Abnormal Lab Results - Last 24 Hours (Table) 08/27/18 08/27/18 08/28/18 Range/Units 16:17 21:19 06:05 RBC 3.72 L (4.30-5.90) m/uL Hgb 11.6 L (13.0-17.5) gm/dL Hct 36.7 L (39.0-53.0) % Neutrophils # 8.5 H (1.3-7.7) k/uL Lymphocytes # 0.5 L (1.0-4.8) k/uL Sodium (137-145) mmol/L Potassium (3.5-5.1) mmol/L Creatinine (0.66-1.25) mg/dL Glucose (74-99) mg/dL POC Glucose (mg/dL) 226 H 184 H (75-99) mg/dL Calcium (8.4-10.2) mg/dL Total Protein (6.3-8.2) g/dL Albumin (3.5-5.0) g/dL 08/28/18 08/28/18 08/28/18 Range/Units 06:05 06:41 11:33 RBC (4.30-5.90) m/uL Hgb (13.0-17.5) gm/dL Hct (39.0-53.0) % Neutrophils # (1.3-7.7) k/uL Lymphocytes # (1.0-4.8) k/uL Sodium 134 L (137-145) mmol/L Potassium 3.4 L (3.5-5.1) mmol/L Creatinine 1.55 H (0.66-1.25) mg/dL Glucose 185 H (74-99) mg/dL POC Glucose (mg/dL) 173 H 172 H (75-99) mg/dL Calcium 8.3 L (8.4-10.2) mg/dL Total Protein 4.9 L (6.3-8.2) g/dL Albumin 2.5 L (3.5-5.0) g/dL Microbiology - Last 24 Hours (Table) 08/27/18 13:20 Gram Stain - Preliminary Pleural Fluid Body Fluid Culture - Preliminary 08/27/18 13:20 Acid Fast Bacilli Smear - Final Thoracentesis Fluid Acid Fast Bacilli Culture - Preliminary 08/27/18 13:20 Fungal Culture - Preliminary Thoracentesis Fluid Assessment and Plan Plan: Assessment and plan #1 Chronic persistent atrial fibrillation #2 Chronic systolic heart failure, EF 30-35% #3 Left sided pleural effusion secondary to renal cancer with metastasis to the lung likely #4 Multivessel coronary artery disease #5 Dyslipidemia #6 Hypertension #7 Aortic stenosis #8 Dilated cardiomyopathy Plan From cardiology's perspective, we will follow this patient along with you now on an as-needed basis only, please don't hesitate to call with any questions. DNP note has been reviewed, I agree with a documented findings and plan of care. Patient was seen and examined.
[2018-08-28 16:35] LABS: Glucose,Whole Blood 186 mg/dL (75-99)
[2018-08-28 19:58] VITALS: RESP 17
[2018-08-28 20:16] LABS: Glucose,Whole Blood 218 mg/dL (75-99)
[2018-08-28] MEDS: HYDROcodone/APAP 5-325MG 1 EACH TAB PO PRN (20:17)
[2018-08-28] MEDS: ZOLPIDEM 5 MG TAB PO SCH (20:17)
[2018-08-28 21:05] LABS: Glucose,Whole Blood 219 mg/dL (75-99)
--- NOTE | 2018-08-28 23:49 | PN ---
PROGRESS NOTE SUBJECTIVE: 77-year-old white male, atrial fibrillation, rapid ventricular response with large pleural effusion, status post thoracentesis of large amount of fluid drawn off. He is still having some significant shortness of breath. Consult with Pulmonary and Oncology are occurring. History of CHF, COPD, pleural effusions, coronary artery disease. She is breathing much better today. Had 1.5 L of serosanguineous drainage was removed. He does not wear oxygen at home during the day. Currently he is on 2 L, saturating in 95, blood pressure 90/3 over 50s, pulse 80s to 81, respiratory 16-18, temp 98.1. Lungs show scattered rhonchi and wheeze. Cardiovascular S1-S2. Hematology negative Homans'. Psych: Fair mood and affect. ASSESSMENT: 1. Chronic persistent atrial fibrillation. 2. Systolic congestive heart failure. 3. Left-sided pleural effusion due to renal cancer/lung cancer. 4. Multivessel coronary disease. 5. Hypertension. 6. Aortic stenosis. 7. Cardiomyopathy. 8. Dyslipidemia. Await pulmonary recommendations for discharge on diuresis and awaiting before discharge home. Oncology consult pending. MMODL / IJN: [id number] /
[2018-08-29 06:01] LABS: Glucose,Whole Blood 227 mg/dL (75-99)
[2018-08-29] MEDS: methylPREDNISolone SOD SUCCI 125 MG/2 ML VIAL IV SCH ×2 (06:53→11:46)
[2018-08-29] MEDS: INSULIN ASPART 100 UNIT/ML 1 ML 10 ML VIAL SQ SCH ×2 (06:54→11:46)
[2018-08-29 07:02] LABS: Basophils % (A) 0 %; Eosinophils % (A) 0 %; HCT 39.5 % (39.0-53.0); HGB 12.3 gm/dL (13.0-17.5); Lymphocytes # (A) 0.2 k/uL (1.0-4.8); Lymphocytes % (A) 2 %; MCH 31.2 pg (25.0-35.0); MCHC 31.2 g/dL (31.0-37.0); Macrocytosis Slight; Mean Platelet Volume 7.2; Monocytes # (A) 0.4 k/uL (0-1.0); Monocytes % (A) 3 %; Neutrophils # (A) 12.2 k/uL (1.3-7.7); Neutrophils % (A) 95 %; Platelet Count 199 k/uL (150-450); RBC 3.95 m/uL (4.30-5.90); RDW 14.6 % (11.5-15.5); WBC 12.8 k/uL (3.8-10.6)
[2018-08-29] MEDS: metFORMIN 500 MG TAB PO SCH (07:03)
[2018-08-29] MEDS: BUDESONIDE 0.5 MG/2 ML NEBU INHALATION SCH (07:08)
[2018-08-29] MEDS: ALBUTEROL NEBULIZED 2.5 MG/3 ML INHALATION PRN (07:08)
[2018-08-29 07:27] LABS: Calcium 8.4 mg/dL (8.4-10.2); Potassium 4.2 mmol/L (3.5-5.1)
[2018-08-29 08:05] VITALS: TEMP 97.7
[2018-08-29] MEDS: LISINOPRIL 2.5 MG TAB PO SCH (08:06)
[2018-08-29] MEDS: METOPROLOL TARTRATE 50 MG TAB PO SCH (08:06)
[2018-08-29] MEDS: CHOLECALCIFEROL 1,000 UNIT TAB PO SCH (08:06)
[2018-08-29] MEDS: ATORVASTATIN 80 MG TAB PO SCH (08:07)
[2018-08-29] MEDS: SPIRONOLACTONE 25 MG TAB PO SCH (08:07)
[2018-08-29] MEDS: FERROUS SULFATE 325 MG TAB PO SCH (08:07)
[2018-08-29] MEDS: ISOSORBIDE MONONITRATE ER 30 MG TAB.ER.24H PO SCH (08:07)
[2018-08-29] MEDS: FUROSEMIDE 20 MG TAB PO SCH (08:07)
[2018-08-29] MEDS: APIXABAN 5 MG TAB PO SCH (08:07)
[2018-08-29] MEDS: PIOGLITAZONE 30 MG TAB PO SCH (08:07)
[2018-08-29] MEDS ORDERED: METOPROLOL TARTRATE 50 MG TAB PO STA (08:37)
--- NOTE | 2018-08-29 09:34 | P.PN ---
Subjective Progress Note Date: 08/29/18 Interval history: 08/28/2018patient is being seen examined and evaluated today on rounds. He is resting up in bed on 2 L of supplemental oxygen via nasal cannula. Occasionally does have shortness of breath however is improving. The patient did undergo a left-sided thoracentesis with interventional radiology yesterday. Approximately 1.5 L of serosanguineous drainage was removed and sent to the lab. Today he has some generalized complains of mild nausea. We will order Zofran. He is afebrile no further complaints. 08/29/18- patient is being seen examined and evaluated today on rounds. He is resting up in bed on room air. Occasional shortness of breath with exertion however continues to improve. He feels his breathing is stable. It is looking forward to possible discharge. He did have some episodes of tachycardia this morning, appreciate cardiology recommendations. All labs and reports reviewed. Pathology/cytology on pleural fluid is pending. Afebrile no further complaints Objective - Vital Signs Vital signs: Vital Signs Temp 97.7 F 08/29/18 08:00 Pulse 150 H 08/29/18 08:37 Resp 17 08/29/18 08:00 BP 115/60 08/29/18 08:37 Pulse Ox 97 08/29/18 08:42 Intake & Output 08/28/18 08/29/18 08/29/18 18:59 06:59 18:59 Intake Total 100 250 Balance 100 250 Intake: IV 10 0.9 10 Oral 100 240 Other: Voiding Method Toilet Toilet Toilet # Voids 1 3 - Exam GENERAL EXAM: Alert, active, comfortable in no apparent distress. HEAD: Normocephalic. EYES: Normal reaction of pupils, equal size. NOSE: Clear with pink turbinates. THROAT: No erythema or exudates. NECK: No masses, no JVD. CHEST: No chest wall deformity. LUNGS: Equal air entry with no crackles, wheeze, rhonchi or dullness. Bases diminished bilaterally, more so on the left CVS: S1 and S2 normal with no audible mumurs, irregular rhythm. ABDOMEN: No hepatosplenomegaly, normal bowel sounds, no guarding or rigidity. EXTREMITIES: No edema noted, pedal pulses palpable. CENTRAL NERVOUS SYSTEM: No focal deficits, tone is normal in all 4 extremities. - Labs CBC & Chem 7: 08/29/18 06:33 08/29/18 06:33 Labs: Abnormal Lab Results - Last 24 Hours (Table) 08/28/18 08/28/18 08/28/18 Range/Units 11:33 16:33 20:15 WBC (3.8-10.6) k/uL RBC (4.30-5.90) m/uL Hgb (13.0-17.5) gm/dL Neutrophils # (1.3-7.7) k/uL Lymphocytes # (1.0-4.8) k/uL Sodium (137-145) mmol/L BUN (9-20) mg/dL Creatinine (0.66-1.25) mg/dL Glucose (74-99) mg/dL POC Glucose (mg/dL) 172 H 186 H 218 H (75-99) mg/dL 08/28/18 08/29/18 08/29/18 Range/Units 20:59 06:00 06:33 WBC 12.8 H (3.8-10.6) k/uL RBC 3.95 L (4.30-5.90) m/uL Hgb 12.3 L (13.0-17.5) gm/dL Neutrophils # 12.2 H (1.3-7.7) k/uL Lymphocytes # 0.2 L (1.0-4.8) k/uL Sodium (137-145) mmol/L BUN (9-20) mg/dL Creatinine (0.66-1.25) mg/dL Glucose (74-99) mg/dL POC Glucose (mg/dL) 219 H 227 H (75-99) mg/dL 08/29/18 Range/Units 06:33 WBC (3.8-10.6) k/uL RBC (4.30-5.90) m/uL Hgb (13.0-17.5) gm/dL Neutrophils # (1.3-7.7) k/uL Lymphocytes # (1.0-4.8) k/uL Sodium 136 L (137-145) mmol/L BUN 30 H (9-20) mg/dL Creatinine 1.94 H (0.66-1.25) mg/dL Glucose 226 H (74-99) mg/dL POC Glucose (mg/dL) (75-99) mg/dL Microbiology - Last 24 Hours (Table) 08/27/18 13:20 Gram Stain - Preliminary Pleural Fluid Body Fluid Culture - Preliminary Assessment and Plan Assessment: Assessment A. fib with RVR Left-sided pleural effusion status post thoracentesis Multifactorial shortness of breath and dyspnea related to above Metastatic lung cancer Renal cancer Medical debility CHF Plan Patient is cleared from a pulmonary stand point for discharge Respiratory status stable, is on room air Medications have been reviewed and will be continued as ordered. Cardio on consult, Eliquis has been restarted Agree with continued diuresis, patient is currently on his home dose of Lasix 20 mg twice a day Status post thoracentesis 1.5 L of fluid removed, fluid was sent to the lab results pending Continue with pulmonary hygiene, coughing and deep breathing exercises, and supportive care. Supplemental oxygen to maintain oxygen saturations of 92% or better. Continue nebulizer treatments. Increase activity as tolerated GI and DVT prophylaxis. We will continue to monitor labs/results and adjust treatment as necessary. I, the signing physician performed an examination of the patient, discussed and directed their management with the nurse practitioner. I have reviewed the nurse practitioner's note and agree with the documented findings, orders and plan of care.
[2018-08-29 11:39] LABS: Glucose,Whole Blood 247 mg/dL (75-99)
[2018-08-29 11:45] VITALS: BP 100/62; PULSE 87
[2018-08-29] MEDS: MULTIVITAMINS, THERA 1 EACH TAB PO SCH (11:46)
--- NOTE | 2018-10-03 09:37 | DS ---
DISCHARGE SUMMARY DATE OF ADMISSION: 08/24/2018 DATE OF DISCHARGE: 08/29/2018 MEDICATIONS INCLUDE: 1. Multivitamin daily. 2. Metformin 1000 b.i.d. 3. Lasix 20 mg b.i.d. 4. Imdur 30 mg daily. 5. Eliquis 5 mg b.i.d. 6. Vitamin D3 five thousand units daily. 7. Ferrous sulfate 325 daily. 8. DuoNeb q.i.d. 9. Zestril 2.5 daily. 10.Toprol-XL 50 mg t.i.d. 11.Actos 30 mg daily. 12.Verapamil ER 180 mg daily. 13.Lipitor 80 mg daily. 14.Nitroglycerin sublingual p.r.n. 15.Spironolactone 12.5 daily. CONDITION: Stable. PROGNOSIS: Guarded. Ambulate as tolerated. HOSPITAL COURSE EVENTS: This is a white male, came into the hospital with acute respiratory failure, pleural effusions, possibly community-acquired pneumonia. Patient was treated with IV antibiotics, seen by window machine operator, count team member, myself, Infectious Disease, Intensive of Radiology for drainage of fluid for thoracentesis. Patient wanted to go home. He was stabilized and patient was sent home from hospital with possible hospice care, as he has got progressive renal cancer and progressive small-cell cancer of the lung and to follow up as an outpatient. MMODL / IJN: [id number] /
== END 2018-08-29 13:55 | disposition home or self-care (01) | DRG 686 ==
LOC: EC 03:16 → 3SCARD 04:26
PROVIDERS: ADMIT Family Medicine; ATTEND Family Medicine
PROC: 0W9B3ZZ Drainage of Left Pleural Cavity, Percutaneous Approach (ICD-10-PCS; principal; 2018-08-27)
DX: C64.9 Malignant neoplasm of unspecified kidney, except renal pelvis (principal); J96.00 Acute respiratory failure, unspecified whether with hypoxia or hypercapnia; J18.9 Pneumonia, unspecified organism; J91.0 Malignant pleural effusion; C78.00 Secondary malignant neoplasm of unspecified lung; I42.0 Dilated cardiomyopathy; I48.1 Persistent atrial fibrillation; I50.22 Chronic systolic (congestive) heart failure; J45.901 Unspecified asthma with (acute) exacerbation; E11.9 Type 2 diabetes mellitus without complications; E78.5 Hyperlipidemia, unspecified; I11.0 Hypertensive heart disease with heart failure; I25.10 Atherosclerotic heart disease of native coronary artery without angina pectoris; I27.20 Pulmonary hypertension, unspecified; I35.0 Nonrheumatic aortic (valve) stenosis; I48.2 Chronic atrial fibrillation; J44.9 Chronic obstructive pulmonary disease, unspecified; Z79.01 Long term (current) use of anticoagulants; Z79.84 Long term (current) use of oral hypoglycemic drugs; Z80.9 Family history of malignant neoplasm, unspecified; Z86.73 Personal history of transient ischemic attack (TIA), and cerebral infarction without residual deficits; Z87.891 Personal history of nicotine dependence; Z92.21 Personal history of antineoplastic chemotherapy; Z79.899 Other long term (current) drug therapy
CPT/HCPCS: 32555; 36415; 71045; 71046; 80048; 80053; 80061; 82042; 82550; 82553; 82945; 83036; 83615; 83735; 83880; 84157; 84484; 85025; 85610; 85730; 87070; 87102; 87116; 87205; 87206; 88108; 88305; 88341; 88342; 89050; 93005; 93306; 94640; 94760; 96361; 96365; 96366; 96376; 99291

== ENCOUNTER 2018-08-31 21:27 | Inpatient (IN) | payer MEDICARE, OTHER ==
[2018-08-31] MEDS ORDERED: METOPROLOL TARTRATE 5 MG/5 ML VIAL IVP STA ×2 (22:00→22:58)
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
[2018-08-31 22:33] LABS: Basophils % (A) 0 %; Eosinophils % (A) 0 %; HCT 36.5 % (39.0-53.0); HGB 11.6 gm/dL (13.0-17.5); Lymphocytes # (A) 0.5 k/uL (1.0-4.8); Lymphocytes % (A) 5 %; MCH 31.6 pg (25.0-35.0); MCHC 31.8 g/dL (31.0-37.0); MCV 99.3 fL (80.0-100.0); Macrocytosis Slight; Mean Platelet Volume 8.3; Monocytes # (A) 0.7 k/uL (0-1.0); Monocytes % (A) 7 %; Neutrophils # (A) 9.2 k/uL (1.3-7.7); Neutrophils % (A) 87 %; Platelet Count 275 k/uL (150-450); RBC 3.68 m/uL (4.30-5.90); RDW 14.8 % (11.5-15.5); WBC 10.5 k/uL (3.8-10.6)
[2018-08-31 22:41] LABS: VBG PH 7.49 (7.31-7.41)
[2018-08-31 22:41] LABS: Albumin 2.6 g/dL (3.5-5.0); Calcium 8.5 mg/dL (8.4-10.2); Magnesium 1.3 mg/dL (1.6-2.3); Potassium 3.8 mmol/L (3.5-5.1); Total Bilirubin 0.6 mg/dL (0.2-1.3); Total Protein 5.2 g/dL (6.3-8.2)
[2018-08-31 22:46] LABS: INR 1.4 (<1.2); Partial Thromboplastin Time 34.7 sec (22.0-30.0); Prothrombin Time 13.1 sec (9.0-12.0)
--- NOTE | 2018-08-31 23:13 | XR ---
EXAMINATION TYPE: XR chest 1V portable DATE OF EXAM: 08/31/2018 COMPARISON: 08/27/2018 HISTORY: Lung cancer. Heart failure. TECHNIQUE: Single frontal view of the chest is obtained. FINDINGS: Heart is enlarged. There is pulmonary vascular congestion. There is pulmonary interstitial and alveolar edema. There are chest leads. IMPRESSION: Congestive heart failure with small pleural effusions. Cardiac silhouette is significant ly increased compared to last exam. Pericardial effusion should be considered. Also consider RDS.
--- NOTE | 2018-08-31 23:33 | CT ---
EXAMINATION TYPE: CT brain wo con DATE OF EXAM: 08/31/2018 COMPARISON: 11/26/2010 HISTORY: ams CT DLP: 1095.40 mGycm Automated exposure control for dose reduction was used. FINDINGS: There is a 3 cm area of hypodensity in the medial right cerebellar hemisphere consistent with old cor tical infarct. There is cerebral cortical atrophy. There is no mass effect nor midline shift. There i s 12 mm area of higher attenuation in the right anterior internal capsule. This is partly calcified a nd is stable compared to old exam. This probably relates to degenerative phenomenon. I see no evidenc e of acute intracranial hemorrhage. The calvarium is intact. There is mucosal thickening in bilateral mild maxillary sinusitis. 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 NO ACUTE INTRACRANIAL ABNORMALITY.
[2018-08-31] MEDS ORDERED: DILTIAZEM DRIP BOLUS FROM BAG 1 MG SOLN IV ONE (23:53)
[2018-09-01] MEDS ORDERED: SODIUM CHLORIDE 0.9% 500 ML 500 ML IV ONE (00:04)
[2018-09-01] MEDS: MAGNESIUM SULFATE-D5W PMX 1 GM in DEXTROSE/WATER 1 100ML.BAG IVPB SCH ×4 (00:21→14:11)
[2018-09-01] MEDS: DILTIAZEM 50 MG in SODIUM CHLORIDE 0.9% 40 ML IV SCH ×3 (00:21→04:45)
[2018-09-01] MEDS ORDERED: HALOPERIDOL LACTATE 5 MG/ML 1 ML VIAL IM STA ×2 (00:57→05:20)
[2018-09-01 01:35] LABS: Appearance,Urine Cloudy (Clear); Bilirubin,Urine Negative (Negative); Blood,Urine Moderate (Negative); Color,Urine Yellow; Glucose,Urine (UA) Negative (Negative); Ketones,Urine Negative (Negative); Leukocyte Esterase,Urine Small (Negative); Nitrite,Urine Negative (Negative); Protein,Urine Trace (Negative); RBC,Urine 110 /hpf (0-5); Specific Gravity,Urine 1.009 (1.001-1.035); Urobilinogen,Urine <2.0 mg/dL (<2.0)
[2018-09-01] MEDS ORDERED: NALOXONE 0.4 MG/ML 1 ML VIAL IV PRN (02:04)
[2018-09-01] MEDS ORDERED: LORazepam 2 MG/ML INJ IV STA ×2 (02:06→03:29)
[2018-09-01] MEDS ORDERED: DIGOXIN 250 MCG/ML 2 ML AMP IVP STA (02:20)
[2018-09-01 03:55] LABS: Creatine Kinase MB 1.7 ng/mL (0.0-2.4)
[2018-09-01 03:59] LABS: Troponin I 0.145 ng/mL (0.000-0.034)
--- NOTE | 2018-09-01 04:48 | XR ---
EXAM: XR Chest, 1 View CLINICAL HISTORY: ITS.REASON XR Reason: SOB TECHNIQUE: Frontal view of the chest. COMPARISON: 08/24/18 FINDINGS: Lungs: Mild diffuse airspace opacities throughout the right lung, similar to the prior study. Moderate airspace opacities throughout the left lung, increased compared to on the prior study. Pleural space: Moderate left pleural effusion, similar or increased compared to on the prior study. No pneumothorax. Heart: Unremarkable. No cardiomegaly. Mediastinum: Unremarkable. Bones/joints: Osteopenia. Moderate degenerative changes. Vasculature: Calcified aorta. IMPRESSION: 1. Mild diffuse airspace opacities throughout the right lung, similar to the prior study. 2. Moderate airspace opacities throughout the left lung, increased compared to on the prior study. 3. Moderate left pleural effusion, similar or increased compared to on the prior study.
[2018-09-01] MEDS ORDERED: diphenhydrAMINE 50 MG/ML 1 ML VIAL IVP STA (05:20)
[2018-09-01] MEDS ORDERED: FUROSEMIDE 10 MG/ML 4 ML VIAL IV STA (05:24)
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
[2018-09-01 12:56] LABS: Creatine Kinase MB 2.4 ng/mL (0.0-2.4)
[2018-09-01 13:11] LABS: Troponin I 0.201 ng/mL (0.000-0.034)
[2018-09-01 14:28] VITALS: BMI 31.1
--- NOTE | 2018-09-01 15:55 | ECHOF ---
Referral Reason:pericardial effusion MEASUREMENTS -------- HEIGHT: 170.2 cm WEIGHT: 90.3 kg BP: RVIDd: 3.5 cm (< 3.3) IVSd: 1.1 cm (0.6 - 1.1) LVIDd: 4.4 cm (3.9 - 5.3) LVPWd: 1.3 cm (0.6 - 1.1) IVSs: 1.6 cm LVIDs: 3.1 cm LVPWs: 1.7 cm LA Diam: 4.4 cm (2.7 - 3.8) LAESV Index (A-L): 36.16 ml/m MV EXCURSION: 17.570 mm (> 18.000) MV EF SLOPE: 142 mm/s (70 - 150) EPSS: 0.9 cm AV maxP.00 mmHg AV meanP.95 mmHg RAP: 5.00 mmHg RVSP: 42.41 mmHg FINDINGS -------- Sinus rhythm. This was a technically adequate study. The left ventricular size is normal. There is mild concentric left ventricular hypertrophy. Overa ll left ventricular systolic function is moderate-severely impaired with, an EF between 30 - 35 %. The right ventricle is mildly enlarged. LA is moderately dilated 34-39 ml/m2 The right atrial size is normal. There is mild to moderate aortic valve sclerosis. There is no evidence of aortic regurgitation. T here is moderate aortic stenosis present. Peak/mean gradient across the Aortic Valve is 34.00mmHg / 17.95mmHg. Mild mitral annular calcification present. Mild mitral regurgitation is present. Mild tricuspid regurgitation present. There is mild pulmonary hypertension. The right ventricular systolic pressure, as measured by Doppler, is 42.41mmHg. There is no pulmonic regurgitation present. The aortic root size is normal. There is no pericardial effusion. Moderate Pleural Effusion. CONCLUSIONS -------- 1. Sinus rhythm. 2. The left ventricular size is normal. 3. There is mild concentric left ventricular hypertrophy. 4. Overall left ventricular systolic function is moderate-severely impaired with, an EF between 30 - 35 %. 5. The right ventricle is mildly enlarged. 6. LA is moderately dilated 34-39 ml/m2 7. The right atrial size is normal. 8. There is mild to moderate aortic valve sclerosis. 9. There is no evidence of aortic regurgitation. 10. There is moderate aortic stenosis present. 11. Peak/mean gradient across the Aortic Valve is 34.00mmHg / 17.95mmHg. 12. Mild mitral annular calcification present. 13. Mild mitral regurgitation is present. 14. Mild tricuspid regurgitation present. 15. There is mild pulmonary hypertension. 16. There is no pulmonic regurgitation present. 17. The aortic root size is normal. 18. There is no pericardial effusion. 19. Moderate Pleural Effusion. LICENSED PRACTICAL VOCATIONAL NURSE: Malou Melendez RDCS
--- NOTE | 2018-09-01 15:56 | P.HPIM ---
History of Present Illness H&P Date: 09/01/18 (Patient seen eval reexamined while covering for Dr. Elton Molina) Chief Complaint: Progressive increased shortness of breath and acute hypoxic respiratory jose antonio Mr. Aguayo is a 77-year-old with a stage IV lung cancer, patient is status post thoracentesis for lung cancer recently, he presented into the emergency department with increasing shortness of breath due to severe degree of respiratory difficulty patient has been placed on BiPAP with IPAP of 14 and EPAP of 880% oxygen rate has been said to 10 patient does moan but does not open eyes, this patient was seen in the emergency department as there are no bed available on the selective care the nurse advise me family is seeking hospice, review of the data revealed that patient has multiple comorbidities his past medical history significant for coronary artery disease, TIA, diabetes , hypertension, hyperlipidemia, lung and kidney cancer, aortic stenosis, dilated cardiomyopathy and paroxysmal atrial fibrillation. Cardiac catheterization performed in July 2016 revealed left main free of stenosis, LAD with moderate stenosis in the midportion, diagonal branch 60-70% stenosis, 70% stenosis in the circumflex artery and 7080% in the mid RCA. He was recently discharged from the hospital a couple of days ago, admitted at that time with symptoms of shortness of breath, he also underwent a thoracentesis during that admission. He apparently was readmitted to the emergency room on this occasion with symptoms of mental status changes. He was also noted that to have episodes of diarrhea. Most of the history was obtained from the medical record as the patient is quite confused and there is a sitter at bedside. His EKG performed on arrival here showed atrial fibrillation with a rapid ventricular response. Patient was given 500 g of Lanoxin and initiated on IV Cardizem drip. Repeat EKG performed this morning shows a normal sinus rhythm with nonspecific ST-T wave changes in the lateral leads. Computed tomography scan of the brain did not reveal any acute intracranial abnormality. Chest x-ray showed congestive heart failure with small pleural effusions. Cardiac silhouette is significantly increased as compared with prior exam. Pericardial effusion should also be considered. Repeat chest x-ray performed this morning showed mild diffuse airspace obesity throughout the right lung, similar to prior study. Moderate air space at [place] throughout the left lung , increased as compared with prior. Moderate left-sided pleural effusion similar or increased as compared with prior. Blood pressure this morning earlier 73/40 with a heart rate in the 60s, under percent on BiPAP, current blood pressure 110/70. White blood cell count 10.5, hemoglobin 11.6, platelet count 275. PH 7.4 pCO2 28 and HCO3 21. Sodium 131, potassium 3.8, BUN 53 and creatinine 2.3. Plasma lactic acid 2.9 on admission, 2.1 this morning, magnesium 1.3. Troponin 0.18, 0.14. BNP level 8100. Review of Systems ROS unobtainable: due to mental status All systems: negative Past Medical History Past Medical History: Atrial Fibrillation, Coronary Artery Disease (CAD), Chest Pain / Angina, Heart Failure, CVA/TIA, Diabetes Mellitus, Hyperlipidemia, Hypertension Additional Past Medical History / Comment(s): While being worked up for aortic valvular stenosis cat scan showed multiple pulmonary nodules/mediastinal adenopathy and R renal lesion, pt diagnosed with L lung cancer with surgery and R renal cancer with oral chemo pt states did not work so then had radiation per pt and has completed this, past skin cancer removals, IDDM type II-pt was on orals and insulin prescribed just yesterday. History of Any Multi-Drug Resistant Organisms: None Reported Past Surgical History: Adenoidectomy, Appendectomy, Heart Catheterization, Orthopedic Surgery, Tonsillectomy Additional Past Surgical History / Comment(s): SURENDRA, cardiac cath, L thoracic wedge resection, cat scan guided fine needle aspiration lung and renal nodules, skin cancer removals, colonoscopy with benign polypectomy, bilateral cataract removals, L hand index finger partial amp d/t snowblower accident. Past Anesthesia/Blood Transfusion Reactions: No Reported Reaction Past Psychological History: No Psychological Hx Reported Additional Psychological History / Comment(s): Pt resides with his spouse. He is independent. Smoking Status: Former smoker Past Alcohol Use History: Occasional Additional Past Alcohol Use History / Comment(s): Pt started smoking in 1954 and quit in 1988 Past Drug Use History: None Reported - Past Family History Father Family Medical History: Cancer Mother Family Medical History: Myocardial Infarction (CA) Additional Family Medical History / Comment(s): Mother of a CA at the age of 87yrs. Medications and Allergies Home Medications Medication Instructions Recorded Confirmed Type Multivit-Min/FA/Lycopen/Lutein 1 tab PO DAILY 07/07/16 08/31/18 History [Centrum Silver Tablet] metFORMIN HCL 1,000 mg PO BID 07/07/16 08/31/18 History Furosemide [Lasix] 20 mg PO BID 07/13/16 08/31/18 History Isosorbide Mononitrate ER [Imdur] 30 mg PO DAILY 07/28/16 08/31/18 History Apixaban [Eliquis] 5 mg PO BID 08/24/18 08/31/18 History Cholecalciferol [Vitamin D3] 5,000 unit PO DAILY 08/24/18 08/31/18 History Ferrous Sulfate [Iron (65 MG 325 mg PO DAILY 08/24/18 08/31/18 History Elemental)] Ipratropium-Albuterol Nebulize 3 ml INHALATION RT-Q6H 08/24/18 08/31/18 History [Duoneb 0.5 mg-3 mg/3 ml Soln] Lisinopril [Zestril] 2.5 mg PO DAILY 08/24/18 08/31/18 History Metoprolol Succinate [Toprol Xl] 50 mg PO HS 08/24/18 08/31/18 History Pioglitazone HCl 30 mg PO DAILY 08/24/18 08/31/18 History Verapamil HCl [Verapamil ER] 180 mg PO DAILY 08/24/18 08/31/18 History Atorvastatin [Lipitor] 80 mg PO DAILY tab 08/29/18 08/31/18 Rx Nitroglycerin Sl Tabs [Nitrostat] 0.4 mg SUBLINGUAL Q5M PRN tab 08/29/18 Rx Spironolactone [Aldactone] 12.5 mg PO DAILY tab 08/29/18 08/31/18 Rx Metoprolol Succinate [Toprol Xl] 100 mg PO DAILY 08/31/18 08/31/18 History Allergies Allergy/AdvReac Type Severity Reaction Status Date / Time No Known Allergies Allergy Verified 08/31/18 21:56 Physical Exam Vitals: Vital Signs Temp Pulse Pulse Resp BP BP Pulse Ox 09/01/18 11:13 73 30 H 110/80 09/01/18 11:04 20 09/01/18 09:00 82 16 111/75 100 09/01/18 07:07 68 16 79/44 100 09/01/18 07:01 69 18 73/47 100 09/01/18 06:30 86 18 92/73 100 09/01/18 06:15 89 18 114/67 82 L 09/01/18 06:00 95 20 111/67 100 09/01/18 05:45 92 20 111/67 09/01/18 05:30 82 101/66 95 09/01/18 05:15 101/66 09/01/18 05:00 78 25 H 130/92 09/01/18 04:45 96 26 H 130/92 100 09/01/18 04:32 86 20 130/92 100 09/01/18 04:30 99 21 152/87 100 09/01/18 04:29 98 20 152/87 99 09/01/18 04:26 202 H 09/01/18 04:24 158/123 09/01/18 04:15 200 H 39 H 107/88 83 L 09/01/18 04:00 154 H 32 H 09/01/18 03:45 161 H 25 H 126/93 09/01/18 03:30 186 H 17 97/61 09/01/18 03:15 161 H 28 H 97/61 09/01/18 03:00 137 H 13 89/73 09/01/18 02:45 135 H 20 89/73 09/01/18 02:30 158 H 20 115/72 94 L 09/01/18 02:15 179 H 20 115/72 09/01/18 02:11 155 H 16 115/72 09/01/18 02:00 176 H 33 H 105/82 94 L 09/01/18 01:33 165 H 16 115/89 98 09/01/18 01:30 151 H 37 H 09/01/18 00:30 28 H 116/97 09/01/18 00:00 161 H 20 107/84 95 08/31/18 23:46 149 H 22 108/67 94 L 08/31/18 23:30 144 H 18 115/67 94 L 08/31/18 23:24 133 H 16 115/67 95 08/31/18 22:46 160 H 16 105/93 96 08/31/18 22:20 150 H 16 112/74 08/31/18 22:18 142 H 16 102/83 97 08/31/18 21:50 98.2 F 144 H 16 125/102 95 Intake and Output 1109/01/18 09/01/18 06:59 14:59 22:59 Intake Total 50.167 234.5 Output Total 800 Balance -749.833 234.5 Intake: Intake, IV Titration 50.167 234.5 Amount Diltiazem 50 mg In Sodium 50.167 34.5 Chloride 0.9% 40 ml @ 5 MG/HR 5 mls/hr IV .Q10H DEREK Rx#:[id number] Magnesium Sulfate-D5w Pmx 200 1 gm In Dextrose/Water 1 100ml.bag @ 100 mls/hr IVPB Q1H DEREK Rx#: [id number] Output: Urine 800 Uretheral (Reyes) 800 Other: Weight 90.265 kg PHYSICAL EXAMINATION: GENERAL: 77-year-old gentleman in no acute distress at the time of my examination HEENT: Head is atraumatic, normocephalic. Pupils equal, round. Sclera anicteric. Conjunctiva are clear. Mucous membranes of the mouth are moist. Neck is supple. There is elevated jugular venous pressure. No carotid bruit is heard. HEART EXAMINATION: Heart S1 S2 1 systolic ejection murmur is heard. CHEST EXAMINATION: His reveal scattered coarse rhonchi throughout with diminished air entry to the bases. ABDOMEN: Soft, nontender. Bowel sounds are heard. No organomegaly noted. EXTREMITIES: 2+ peripheral pulses with evidence of peripheral edema and no calf tenderness noted. NEUROLOGIC [patient is sleepy, confused on BiPAP with above setting . Results CBC & Chem 7: 08/31/18 21:49 08/31/18 21:49 Labs: Abnormal Lab Results - Last 24 Hours (Table) 08/31/18 08/31/18 08/31/18 Range/Units 21:49 21:49 21:49 RBC 3.68 L (4.30-5.90) m/uL Hgb 11.6 L (13.0-17.5) gm/dL Hct 36.5 L (39.0-53.0) % Neutrophils # 9.2 H (1.3-7.7) k/uL Lymphocytes # 0.5 L (1.0-4.8) k/uL PT 13.1 H (9.0-12.0) sec INR 1.4 H (<1.2) APTT 34.7 H (22.0-30.0) sec VBG pH (7.31-7.41) VBG pCO2 (37-51) mmHg VBG HCO3 (24-28) mmol/L Sodium 131 L (137-145) mmol/L Chloride 97 L (98-107) mmol/L BUN 53 H (9-20) mg/dL Creatinine 2.35 H (0.66-1.25) mg/dL Plasma Lactic Acid [place] (0.7-2.0) mmol/L Magnesium 1.3 L (1.6-2.3) mg/dL Total Creatine Kinase (55-170) U/L Troponin I (0.000-0.034) ng/mL Total Protein 5.2 L (6.3-8.2) g/dL Albumin 2.6 L (3.5-5.0) g/dL Urine Protein (Negative) Urine Blood (Negative) Ur Leukocyte Esterase (Negative) Urine RBC (0-5) /hpf Urine WBC (0-5) /hpf 08/31/18 08/31/18 08/31/18 Range/Units 21:49 22:27 22:27 RBC (4.30-5.90) m/uL Hgb (13.0-17.5) gm/dL Hct (39.0-53.0) % Neutrophils # (1.3-7.7) k/uL Lymphocytes # (1.0-4.8) k/uL PT (9.0-12.0) sec INR (<1.2) APTT (22.0-30.0) sec VBG pH 7.49 H (7.31-7.41) VBG pCO2 28 L (37-51) mmHg VBG HCO3 21 L (24-28) mmol/L Sodium (137-145) mmol/L Chloride (98-107) mmol/L BUN (9-20) mg/dL Creatinine (0.66-1.25) mg/dL Plasma Lactic Acid [place] 2.9 H* (0.7-2.0) mmol/L Magnesium (1.6-2.3) mg/dL Total Creatine Kinase (55-170) U/L Troponin I 0.185 H* (0.000-0.034) ng/mL Total Protein (6.3-8.2) g/dL Albumin (3.5-5.0) g/dL Urine Protein (Negative) Urine Blood (Negative) Ur Leukocyte Esterase (Negative) Urine RBC (0-5) /hpf Urine WBC (0-5) /hpf 09/01/18 09/01/18 09/01/18 Range/Units 01:14 02:52 02:52 RBC (4.30-5.90) m/uL Hgb (13.0-17.5) gm/dL Hct (39.0-53.0) % Neutrophils # (1.3-7.7) k/uL Lymphocytes # (1.0-4.8) k/uL PT (9.0-12.0) sec INR (<1.2) APTT (22.0-30.0) sec VBG pH (7.31-7.41) VBG pCO2 (37-51) mmHg VBG HCO3 (24-28) mmol/L Sodium (137-145) mmol/L Chloride (98-107) mmol/L BUN (9-20) mg/dL Creatinine (0.66-1.25) mg/dL Plasma Lactic Acid [place] 2.1 H* (0.7-2.0) mmol/L Magnesium (1.6-2.3) mg/dL Total Creatine Kinase 44 L (55-170) U/L Troponin I 0.145 H* (0.000-0.034) ng/mL Total Protein (6.3-8.2) g/dL Albumin (3.5-5.0) g/dL Urine Protein Trace H (Negative) Urine Blood Moderate H (Negative) Ur Leukocyte Esterase Small H (Negative) Urine RBC 110 H (0-5) /hpf Urine WBC 19 H (0-5) /hpf 09/01/18 Range/Units 11:24 RBC (4.30-5.90) m/uL Hgb (13.0-17.5) gm/dL Hct (39.0-53.0) % Neutrophils # (1.3-7.7) k/uL Lymphocytes # (1.0-4.8) k/uL PT (9.0-12.0) sec INR (<1.2) APTT (22.0-30.0) sec VBG pH (7.31-7.41) VBG pCO2 (37-51) mmHg VBG HCO3 (24-28) mmol/L Sodium (137-145) mmol/L Chloride (98-107) mmol/L BUN (9-20) mg/dL Creatinine (0.66-1.25) mg/dL Plasma Lactic Acid [place] (0.7-2.0) mmol/L Magnesium (1.6-2.3) mg/dL Total Creatine Kinase 50 L (55-170) U/L Troponin I 0.201 H* (0.000-0.034) ng/mL Total Protein (6.3-8.2) g/dL Albumin (3.5-5.0) g/dL Urine Protein (Negative) Urine Blood (Negative) Ur Leukocyte Esterase (Negative) Urine RBC (0-5) /hpf Urine WBC (0-5) /hpf Microbiology - Last 24 Hours (Table) 09/01/18 01:14 Urine Culture - Preliminary Urine,Voided Chest x-ray: report reviewed (Computed tomography scan of the head revealed old right cerebellar infarct, chest x-ray revealed bilateral pleural effusion with finding consistent with congestive heart failure cardiomegaly is noted pericardial effusion cannot be excluded effusion appears to more on the left side compared right side ), image reviewed Assessment and Plan Assessment: Altered mental status likely multiple factors Acute hypoxic respiratory failure Acute exacerbation of congestive heart failure Acute renal fibrillation with rapid ventricular response now patient is in sinus rhythm Chronic systolic heart failure ejection fraction 35% Valvular heart disease with severe aortic stenosis SHEBA morbid obesity Stage IV lung cancer metastatic Renal cell carcinoma Plan: Generalized management as above with supportive care Given as per discussion with staff and family is seeking and leaning towards hospice and comfort measure will follow closely further recommendations pending Time with Patient: Greater than 30
[2018-09-01 18:20] LABS: Glucose,Whole Blood 146 mg/dL (75-99)
[2018-09-01] MEDS ORDERED: HEPARIN SODIUM,PORCINE 5,000 UNIT/ML 1 ML VIAL IV ONE (18:49)
[2018-09-01] MEDS ORDERED: VANCOMYCIN IV PER PHARMACY 1 EACH MISC MISCELLANE PRN (18:49)
[2018-09-01] MEDS ORDERED: HEPARIN SODIUM,PORCINE 5,000 UNIT/ML 1 ML VIAL IV PRN (18:49)
[2018-09-01] MEDS ORDERED: HEPARIN SOD,PORK IN 0.45% NACL 25,000 UNIT in 0.45% NACL 1 500ML.BAG IV SCH (19:00)
[2018-09-01] MEDS ORDERED: VANCOMYCIN 1,500 MG in SODIUM CHLORIDE 0.9% 250 ML IVPB ONE (19:15)
[2018-09-01 20:01] LABS: Basophils % (A) 0 %; Eosinophils % (A) 0 %; HCT 32.3 % (39.0-53.0); HGB 11.2 gm/dL (13.0-17.5); Lymphocytes # (A) 0.4 k/uL (1.0-4.8); Lymphocytes % (A) 5 %; MCH 33.1 pg (25.0-35.0); MCHC 34.6 g/dL (31.0-37.0); MCV 95.6 fL (80.0-100.0); Mean Platelet Volume 7.3; Monocytes # (A) 0.4 k/uL (0-1.0); Monocytes % (A) 6 %; Neutrophils # (A) 6.7 k/uL (1.3-7.7); Neutrophils % (A) 89 %; Platelet Count 214 k/uL (150-450); RBC 3.38 m/uL (4.30-5.90); RDW 14.3 % (11.5-15.5); WBC 7.5 k/uL (3.8-10.6)
[2018-09-01] MEDS: PIPERACILLIN-TAZOBACTAM 3.375 GM in SODIUM CHLORIDE 0.9% 100 ML IVPB SCH (20:10)
[2018-09-01 20:12] LABS: INR 1.4 (<1.2); Partial Thromboplastin Time 31.2 sec (22.0-30.0); Prothrombin Time 13.2 sec (9.0-12.0)
[2018-09-02] MEDS: PIPERACILLIN-TAZOBACTAM 3.375 GM in SODIUM CHLORIDE 0.9% 100 ML IVPB SCH (03:00)
[2018-09-02 03:16] LABS: Basophils % (A) 0 %; Eosinophils % (A) 0 %; HCT 35.9 % (39.0-53.0); HGB 11.3 gm/dL (13.0-17.5); Lymphocytes # (A) 0.3 k/uL (1.0-4.8); Lymphocytes % (A) 3 %; MCH 31.2 pg (25.0-35.0); MCHC 31.5 g/dL (31.0-37.0); MCV 98.9 fL (80.0-100.0); Mean Platelet Volume 7.1; Monocytes # (A) 0.6 k/uL (0-1.0); Monocytes % (A) 7 %; Neutrophils # (A) 7.6 k/uL (1.3-7.7); Neutrophils % (A) 89 %; Platelet Count 256 k/uL (150-450); RBC 3.63 m/uL (4.30-5.90); RDW 14.6 % (11.5-15.5); WBC 8.5 k/uL (3.8-10.6)
[2018-09-02 03:35] LABS: Calcium 8.5 mg/dL (8.4-10.2); Potassium 3.8 mmol/L (3.5-5.1)
[2018-09-02] MEDS: DILTIAZEM 50 MG in SODIUM CHLORIDE 0.9% 40 ML IV SCH (04:04)
[2018-09-02] MEDS ORDERED: ARTIFICIAL TEARS-HYPROMELLOSE DROPS 15 ML BTL BOTH EYES PRN (08:22)
[2018-09-02] MEDS ORDERED: SCOPOLAMINE 1.5MG/72HR PATCH TRANSDERM SCH (08:30)
[2018-09-02] MEDS: MORPHINE SULFATE (100 MG/2 ML) 100 MG in SODIUM CHLORIDE 0.9% 100 ML IV SCH (10:17)
[2018-09-02] MEDS ORDERED: VANCOMYCIN 1,500 MG in SODIUM CHLORIDE 0.9% 250 ML IVPB ONE (12:00)
--- NOTE | 2018-09-02 17:22 | P.CNPUL ---
History of Present Illness Consult date: 09/02/18 Reason for consult: dyspnea, cough, COPD, hypoxemia, pleural effusion, pulmonary hypertension, lung mass Chief complaint: Shortness of breath, pleural effusion History of present illness: Mr. Leyva, is a 77-year-old with a stage IV lung cancer, patient is status post thoracentesis for lung cancer recently, he presented into the emergency department with increasing shortness of breath due to severe degree of respiratory difficulty patient has been placed on BiPAP with IPAP of 14 and EPAP of 880% oxygen rate has been said to 10 patient does moan but does not open eyes, this patient was seen in the emergency department as there are no bed available on the selective care the nurse advise me family is seeking hospice, review of the data revealed that patient has multiple comorbidities his past medical history significant for coronary artery disease, TIA, diabetes , hypertension, hyperlipidemia, lung and kidney cancer, aortic stenosis, dilated cardiomyopathy and paroxysmal atrial fibrillation. Cardiac catheterization performed in July 2016 revealed left main free of stenosis, LAD with moderate stenosis in the midportion, diagonal branch 60-70% stenosis, 70% stenosis in the circumflex artery and 7080% in the mid RCA. He was recently discharged from the hospital a couple of days ago, admitted at that time with symptoms of shortness of breath, he also underwent a thoracentesis during that admission. He apparently was readmitted to the emergency room on this occasion with symptoms of mental status changes. He was also noted that to have episodes of diarrhea. Most of the history was obtained from the medical record as the patient is quite confused and there is a sitter at bedside. His EKG performed on arrival here showed atrial fibrillation with a rapid ventricular response. Patient was given 500 g of Lanoxin and initiated on IV Cardizem drip. Repeat EKG performed this morning shows a normal sinus rhythm with nonspecific ST-T wave changes in the lateral leads. Computed tomography scan of the brain did not reveal any acute intracranial abnormality. Chest x-ray showed congestive heart failure with small pleural effusions. Cardiac silhouette is significantly increased as compared with prior exam. Pericardial effusion should also be considered. Repeat chest x-ray performed this morning showed mild diffuse airspace obesity throughout the right lung, similar to prior study. Moderate air space at [place] throughout the left lung , increased as compared with prior. Moderate left-sided pleural effusion similar or increased as compared with prior. Blood pressure this morning earlier 73/40 with a heart rate in the 60s, under percent on BiPAP, current blood pressure 110/70. White blood cell count 10.5, hemoglobin 11.6, platelet count 275. PH 7.4 pCO2 28 and HCO3 21. Sodium 131, potassium 3.8, BUN 53 and creatinine 2.3. Plasma lactic acid 2.9 on admission, 2.1 this morning, magnesium 1.3. Troponin 0.18, 0.14. BNP level 8100. At this point in time patient family is leaning towards hospice don't want any aggressive intervention like thoracentesis or BiPAP therapy today expressed that they just want to keep patient comfortable Review of Systems All systems: negative Past Medical History Past Medical History: Atrial Fibrillation, Coronary Artery Disease (CAD), Chest Pain / Angina, Heart Failure, CVA/TIA, Diabetes Mellitus, Hyperlipidemia, Hypertension Additional Past Medical History / Comment(s): While being worked up for aortic valvular stenosis cat scan showed multiple pulmonary nodules/mediastinal adenopathy and R renal lesion, pt diagnosed with L lung cancer with surgery and R renal cancer with oral chemo pt states did not work so then had radiation per pt and has completed this, past skin cancer removals, IDDM type II-pt was on orals and insulin prescribed just yesterday. History of Any Multi-Drug Resistant Organisms: None Reported Past Surgical History: Adenoidectomy, Appendectomy, Heart Catheterization, Orthopedic Surgery, Tonsillectomy Additional Past Surgical History / Comment(s): SURENDRA, cardiac cath, L thoracic wedge resection, cat scan guided fine needle aspiration lung and renal nodules, skin cancer removals, colonoscopy with benign polypectomy, bilateral cataract removals, L hand index finger partial amp d/t snowblower accident. Past Anesthesia/Blood Transfusion Reactions: No Reported Reaction Past Psychological History: No Psychological Hx Reported Additional Psychological History / Comment(s): Pt resides with his spouse. He is independent. Smoking Status: Former smoker Past Alcohol Use History: Occasional Additional Past Alcohol Use History / Comment(s): Pt started smoking in 1954 and quit in 1988 Past Drug Use History: None Reported - Past Family History Father Family Medical History: Cancer Mother Family Medical History: Myocardial Infarction (IA) Additional Family Medical History / Comment(s): Mother of a IA at the age of 87yrs. Medications and Allergies Home Medications Medication Instructions Recorded Confirmed Type Multivit-Min/FA/Lycopen/Lutein 1 tab PO DAILY 07/07/16 08/31/18 History [Centrum Silver Tablet] metFORMIN HCL 1,000 mg PO BID 07/07/16 08/31/18 History Furosemide [Lasix] 20 mg PO BID 07/13/16 08/31/18 History Isosorbide Mononitrate ER [Imdur] 30 mg PO DAILY 07/28/16 08/31/18 History Apixaban [Eliquis] 5 mg PO BID 08/24/18 08/31/18 History Cholecalciferol [Vitamin D3] 5,000 unit PO DAILY 08/24/18 08/31/18 History Ferrous Sulfate [Iron (65 MG 325 mg PO DAILY 08/24/18 08/31/18 History Elemental)] Ipratropium-Albuterol Nebulize 3 ml INHALATION RT-Q6H 08/24/18 08/31/18 History [Duoneb 0.5 mg-3 mg/3 ml Soln] Lisinopril [Zestril] 2.5 mg PO DAILY 08/24/18 08/31/18 History Metoprolol Succinate [Toprol Xl] 50 mg PO HS 08/24/18 08/31/18 History Pioglitazone HCl 30 mg PO DAILY 08/24/18 08/31/18 History Verapamil HCl [Verapamil ER] 180 mg PO DAILY 08/24/18 08/31/18 History Atorvastatin [Lipitor] 80 mg PO DAILY tab 08/29/18 08/31/18 Rx Nitroglycerin Sl Tabs [Nitrostat] 0.4 mg SUBLINGUAL Q5M PRN tab 08/29/18 Rx Spironolactone [Aldactone] 12.5 mg PO DAILY tab 08/29/18 08/31/18 Rx Metoprolol Succinate [Toprol Xl] 100 mg PO DAILY 08/31/18 08/31/18 History Allergies Allergy/AdvReac Type Severity Reaction Status Date / Time No Known Allergies Allergy Verified 08/31/18 21:56 Physical Exam Vitals: Vital Signs Temp Pulse Resp BP Pulse Ox 09/02/18 14:56 97.4 F L 94 16 111/52 97 09/02/18 12:40 98.2 F 104 H 18 126/70 95 11/25/18 09:12 98.7 F 95 24 09/02/18 09:10 24 09/02/18 03:47 97 F L 92 22 125/71 96 09/01/18 23:31 88 24 116/65 100 09/01/18 20:00 97.9 F 86 26 H 112/60 100 Intake and Output 09/02/18 09/02/18 09/02/18 06:59 14:59 22:59 Intake Total 120 840 Balance 120 840 Intake: IV 120 Heparin Sod,Pork in 0.45% 120 NaCl 25,000 unit In 0.45 % NaCl 1 500ml.bag @ 11. 11 UNITS/KG/HR 20.05 mls/ hr IV .Q24H [facility] Rx#: [id number] Oral 840 Other: Voiding Method Indwelling Catheter Indwelling Catheter Indwelling Catheter Weight 86.4 kg PHYSICAL EXAMINATION: GENERAL: 77-year-old gentleman in no acute distress at the time of my examination HEENT: Head is atraumatic, normocephalic. Pupils equal, round. Sclera anicteric. Conjunctiva are clear. Mucous membranes of the mouth are moist. Neck is supple. There is elevated jugular venous pressure. No carotid bruit is heard. HEART EXAMINATION: Heart S1 S2 1 systolic ejection murmur is heard. CHEST EXAMINATION: His reveal scattered coarse rhonchi throughout with diminished air entry to the bases. ABDOMEN: Soft, nontender. Bowel sounds are heard. No organomegaly noted. EXTREMITIES: 2+ peripheral pulses with evidence of peripheral edema and no calf tenderness noted. NEUROLOGIC [patient is sleepy, confused getting oxygen via facemask Results - Laboratory Findings CBC and BMP: 09/02/18 02:49 09/02/18 02:49 PT/INR, D-dimer PT 13.2 sec (9.0-12.0) H 09/01/18 19:31 INR 1.4 (<1.2) H 09/01/18 19:31 Abnormal lab findings: Abnormal Labs 08/31/18 08/31/18 08/31/18 21:49 21:49 21:49 RBC 3.68 L Hgb 11.6 L Hct 36.5 L Neutrophils # 9.2 H Lymphocytes # 0.5 L PT 13.1 H INR 1.4 H APTT 34.7 H VBG pH VBG pCO2 VBG HCO3 Sodium 131 L Chloride 97 L Carbon Dioxide BUN 53 H Creatinine 2.35 H Glucose POC Glucose (mg/dL) Plasma Lactic Acid Isac Magnesium 1.3 L Total Creatine Kinase Troponin I Total Protein 5.2 L Albumin 2.6 L Urine Protein Urine Blood Ur Leukocyte Esterase Urine RBC Urine WBC 08/31/18 08/31/18 08/31/18 21:49 22:27 22:27 RBC Hgb Hct Neutrophils # Lymphocytes # PT INR APTT VBG pH 7.49 H VBG pCO2 28 L VBG HCO3 21 L Sodium Chloride Carbon Dioxide BUN Creatinine Glucose POC Glucose (mg/dL) Plasma Lactic Acid Isac 2.9 H* Magnesium Total Creatine Kinase Troponin I 0.185 H* Total Protein Albumin Urine Protein Urine Blood Ur Leukocyte Esterase Urine RBC Urine WBC 09/01/18 09/01/18 09/01/18 01:14 02:52 02:52 RBC Hgb Hct Neutrophils # Lymphocytes # PT INR APTT VBG pH VBG pCO2 VBG HCO3 Sodium Chloride Carbon Dioxide BUN Creatinine Glucose POC Glucose (mg/dL) Plasma Lactic Acid Isac 2.1 H* Magnesium Total Creatine Kinase 44 L Troponin I 0.145 H* Total Protein Albumin Urine Protein Trace H Urine Blood Moderate H Ur Leukocyte Esterase Small H Urine RBC 110 H Urine WBC 19 H 09/01/18 09/01/18 09/01/18 11:24 18:06 19:31 RBC 3.38 L Hgb 11.2 L Hct 32.3 L Neutrophils # Lymphocytes # 0.4 L PT INR APTT VBG pH VBG pCO2 VBG HCO3 Sodium Chloride Carbon Dioxide BUN Creatinine Glucose POC Glucose (mg/dL) 146 H Plasma Lactic Acid Isac Magnesium Total Creatine Kinase 50 L Troponin I 0.201 H* Total Protein Albumin Urine Protein Urine Blood Ur Leukocyte Esterase Urine RBC Urine WBC 09/01/18 09/02/18 09/02/18 19:31 02:49 02:49 RBC 3.63 L Hgb 11.3 L Hct 35.9 L Neutrophils # Lymphocytes # 0.3 L PT 13.2 H INR 1.4 H APTT 31.2 H 48.7 H VBG pH VBG pCO2 VBG HCO3 Sodium Chloride Carbon Dioxide BUN Creatinine Glucose POC Glucose (mg/dL) Plasma Lactic Acid Isac Magnesium Total Creatine Kinase Troponin I Total Protein Albumin Urine Protein Urine Blood Ur Leukocyte Esterase Urine RBC Urine WBC 09/02/18 02:49 RBC Hgb Hct Neutrophils # Lymphocytes # PT INR APTT VBG pH VBG pCO2 VBG HCO3 Sodium 135 L Chloride Carbon Dioxide 20 L BUN 47 H Creatinine 1.79 H Glucose 133 H POC Glucose (mg/dL) Plasma Lactic Acid Isac Magnesium Total Creatine Kinase Troponin I Total Protein Albumin Urine Protein Urine Blood Ur Leukocyte Esterase Urine RBC Urine WBC - Diagnostic Findings Chest x-ray: report reviewed, image reviewed Assessment and Plan Assessment: Metastatic stage IV lung cancer Altered mental status likely multiple factors Acute hypoxic respiratory failure Acute exacerbation of congestive heart failure Acute renal fibrillation with rapid ventricular response now patient is in sinus rhythm Chronic systolic heart failure ejection fraction 35% Valvular heart disease with severe aortic stenosis SHEBA morbid obesity Stage IV lung cancer metastatic Renal cell carcinoma Plan: Generalized management as above with supportive care Given as per discussion with staff and family is seeking and leaning towards hospice and comfort measure, we'll sign off will be available if needed her eyes Time with Patient: Greater than 30
--- NOTE | 2018-09-02 21:00 | PN ---
PROGRESS NOTE This is a white male who discussed with the family, the and daughter of the patient, wants the patient in hospice. Patient has agreed to hospice before he came to the hospital. She is unable to take him home to do hospice. GI soft. Hematology negative Homans. Psych fair mood and affect. He states he wants to go home. Family cannot take him home, so we will have to deal with him here at hospice at this time. Pain control is ordered and home medicines were stopped per family's request. and daughter are happy with him staying here under hospice care. he was changed to DNR. DONNYL / CHRISTINEN: [id number] /
[2018-09-03 03:27] LABS: Anion Gap 7 mmol/L; Blood Urea Nitrogen 35 mg/dL (9-20); Calcium 8.4 mg/dL (8.4-10.2); Carbon Dioxide 27 mmol/L (22-30); Chloride 101 mmol/L (98-107); Glucose 286 mg/dL (74-99); Potassium 3.4 mmol/L (3.5-5.1); Sodium 135 mmol/L (137-145)
[2018-09-03 03:32] LABS: Vancomycin,Random <5.0 ug/mL
[2018-09-03 05:45] VITALS: BP 102/71; PULSE 108; RESP 20; TEMP 98
[2018-09-03 08:23] LABS: Hemoglobin A1C 10.5 % (4.0-6.0)
[2018-09-03] MEDS: MORPHINE SULFATE (100 MG/2 ML) 100 MG in SODIUM CHLORIDE 0.9% 100 ML IV SCH (08:37)
--- NOTE | 2018-09-04 01:43 | PN ---
PROGRESS NOTE SUBJECTIVE: This patient is a 77-year-old white male with atrial fibrillation with rapid ventricular response. This patient has no chest pain. No shortness of breath. He is on comfort care with morphine drip. Medications have been stopped per family. He appears to be breathing heavily, but he appears comfortable. No agitation. CARDIOVASCULAR: S1, S2, irregular. Pulse is around 75, respiratory rate around 8 per minute. He is breathing heavy, mostly clear. ASSESSMENT: 1. Comfort care. 2. Congestive heart failure. 3. Chronic obstructive pulmonary disease. 4. Lung cancer, metastatic. 5. Renal cancer. Please see further orders. Comfort measures in place. MMODL / IJN: [id number] /
--- NOTE | 2018-09-06 08:58 | CDI ---
Last Revision, September 2017 Documentation Clarification Form Date: 09/06/18 From: MJ Lang Phone: If you have question, contact Lauren Andrade at [phone] M-F 8:30 am to 6pm Admit Date: 09/01/2018 2:14:00 AM Patient Name: Stan Leyva Visit Number: [id number] Discharge Date: 09/03/18 ATTENTION: The Clinical Documentation Specialists (CDI) and [facility] Coding Staff appreciate your assistance in clarifying documentation. Please respond to the clarification below the line at the bottom and electronically sign. The CDI & [facility] Coding staff will review the response and follow-up if needed. Please note: Queries are made part of the Legal Health Record. If you have any questions, please contact the author of this message via ITS. Elton Sargent MD Mr. Pierce is noted to have lung cancer and kidney cancer. There is also documentation of metastasis. Progress note from 09/03 states: lung cancer, metastatic Consult from 09/01 states: lung and kidney cancer metastatic Consult from 09/02 states: renal cell carcinoma Mediastinal adenopathy is also noted throughout the documentation. Further clarification regarding primary and metastatic sites is needed for proper reporting purposes. *lung cancer primary with metastasis to kidney and mediastinum *lung cancer primary with metastasis to kidney *lung cancer primary and kidney primary with metastasis to mediastinum *lung cancer primary and kidney primary with unknown site of metastasis *Other (please specify) *Unknown MTDD
--- NOTE | 2018-09-16 18:47 | DS ---
DISCHARGE SUMMARY ADDENDUM: Please add to discharge summary: DISCHARGE DIAGNOSES: Lung cancer primary, renal cancer primary, two different cancers. MMODL / IJN: [id number] /
== END 2018-09-03 12:15 | disposition hospice, inpatient (51) | DRG 308 ==
LOC: EC 21:27 → 3SCARD 09-01 02:14 → 2SICU 09-01 04:38 → 3SCARD 09-01 09:26 → 4MS4W 09-02 12:37
PROVIDERS: ADMIT Family Medicine; ATTEND Family Medicine
PROC: 5A2204Z Restoration of Cardiac Rhythm, Single (ICD-10-PCS; principal; 2018-08-31)
PROC: 5A09457 Assistance with Respiratory Ventilation, 24-96 Consecutive Hours, Continuous Positive Airway Pressure (ICD-10-PCS; principal; 2018-08-31)
DX: I48.0 Paroxysmal atrial fibrillation (principal); J96.01 Acute respiratory failure with hypoxia; I50.23 Acute on chronic systolic (congestive) heart failure; C34.90 Malignant neoplasm of unspecified part of unspecified bronchus or lung; C64.9 Malignant neoplasm of unspecified kidney, except renal pelvis; C79.9 Secondary malignant neoplasm of unspecified site; Z66 Do not resuscitate; I25.10 Atherosclerotic heart disease of native coronary artery without angina pectoris; E78.5 Hyperlipidemia, unspecified; I42.0 Dilated cardiomyopathy; J44.9 Chronic obstructive pulmonary disease, unspecified; R19.7 Diarrhea, unspecified; I11.0 Hypertensive heart disease with heart failure; E66.01 Morbid (severe) obesity due to excess calories; E11.9 Type 2 diabetes mellitus without complications; I35.0 Nonrheumatic aortic (valve) stenosis; Z51.5 Encounter for palliative care; Z86.73 Personal history of transient ischemic attack (TIA), and cerebral infarction without residual deficits; Z92.21 Personal history of antineoplastic chemotherapy; Z92.3 Personal history of irradiation; Z85.828 Personal history of other malignant neoplasm of skin; Z98.42 Cataract extraction status, left eye; Z98.41 Cataract extraction status, right eye; Z86.010 Personal history of colon polyps; Z87.891 Personal history of nicotine dependence; I25.2 Old myocardial infarction; Z79.01 Long term (current) use of anticoagulants; Z79.84 Long term (current) use of oral hypoglycemic drugs; Z79.899 Other long term (current) drug therapy; Z82.49 Family history of ischemic heart disease and other diseases of the circulatory system
CPT/HCPCS: 36415; 51701; 70450; 71045; 80048; 80053; 80202; 81001; 82550; 82553; 82803; 83036; 83605; 83735; 83880; 84484; 85025; 85610; 85730; 87040; 87086; 93005; 93306; 94660; 96365; 96366; 96368; 96372; 96375; 96376; 99285

== ENCOUNTER 2018-09-03 10:47 | Inpatient (IN) | payer MEDICAID ==
[2018-09-03] MEDS ORDERED: ATROPINE OPHTH SOLN 1% 5ML BTL SUBLINGUAL PRN (11:23)
[2018-09-03] MEDS ORDERED: ACETAMINOPHEN SUPPOSITORY 650 MG SUPP RECTAL PRN (11:23)
[2018-09-03] MEDS ORDERED: DRY MOUTH SPRAY 44.3 SPRAY/44.3 ML SPRAY MUCOUS MEM PRN (11:23)
[2018-09-03 13:37] VITALS: BMI 29.8
[2018-09-03] MEDS: MORPHINE SULFATE (100 MG/2 ML) 100 MG in SODIUM CHLORIDE 0.9% 100 ML IV SCH ×2 (14:00→21:05)
[2018-09-05] MEDS ORDERED: SCOPOLAMINE 1.5MG/72HR PATCH TRANSDERM SCH (09:00)
== END 2018-09-04 03:20 | disposition expired | DRG 951 ==
LOC: 4MS4W 12:52
PROVIDERS: ADMIT Family Medicine; ATTEND Family Medicine
DX: Z51.5 Encounter for palliative care (principal); J96.01 Acute respiratory failure with hypoxia; I50.23 Acute on chronic systolic (congestive) heart failure; C34.90 Malignant neoplasm of unspecified part of unspecified bronchus or lung; C64.9 Malignant neoplasm of unspecified kidney, except renal pelvis; I42.8 Other cardiomyopathies; C79.9 Secondary malignant neoplasm of unspecified site; I25.10 Atherosclerotic heart disease of native coronary artery without angina pectoris; Z86.73 Personal history of transient ischemic attack (TIA), and cerebral infarction without residual deficits; I48.0 Paroxysmal atrial fibrillation; E11.9 Type 2 diabetes mellitus without complications; I11.0 Hypertensive heart disease with heart failure; E66.01 Morbid (severe) obesity due to excess calories